=== PATIENT | male | born 1940 | race Caucasian/White ===

== ENCOUNTER → 2020-07-02 08:43 | Outpatient (BNVA) | payer MEDICARE, SELFPAY | PROVIDERS: PCP Internal Medicine; Referring Provider Internal Medicine; Visit Provider Internal Medicine Pulmonary Disease | DX: J44.9 Chronic obstructive pulmonary disease, unspecified (principal); R91.8 Other nonspecific abnormal finding of lung field; F17.200 Nicotine dependence, unspecified, uncomplicated; Z79.899 Other long term (current) drug therapy | CPT/HCPCS: 99212 ==

== ENCOUNTER 2020-07-09 06:18 | Day surgery (SDC) | payer MEDICARE, SELFPAY ==
[2020-07-03 11:59] VITALS: BMI 23.8
--- NOTE | 2020-07-08 09:56 | P.CONAN_ITS ---
Documented by User: Kat Caldwellney 07/08/20 09:58 HPI - Anesthesia Eval Consult details Narrative: 79yo M for [facility] Past Medical History Medical History CAD (coronary artery disease) Diabetes Family history of transitional cell carcinoma of bladder Hx of myocardial infarction Hyperlipidemia Hypertension Smoker Surgical History Surgical History History of left ankle joint replacement History of nasal surgery Hx of cholecystectomy Hx of colonoscopy Hx of cystoscopy Hx of heart artery stent Social History Social History Are you a primary home health care worker to a significant other at home: No Do you presently have visiting nurse or other home services: No Smoking Status: Current every day smoker Cigarettes Per Day: 4 Years Smoked: 40 Smoked in Last 30 Days: Yes Patient Interested in Nicotine Replacement: No Patient Given Instructions on How to Stop Smoking: Yes Date Education Initiated: 07/03/20 Use of substances other than those prescribed or required for medical reasons: No Have you been hit, kicked, punched, or otherwise hurt by someone within the past year? If so, by whom?: No Advance Directives: No Advance Directives Information Provided: No Advance Directives on File: No Recently lost weight without trying: No Meds Allergies Allergy/AdvReac Type Severity Reaction Status Date / Time No Known Allergies Allergy Verified 07/08/20 10:10 Home Medications Medication Instructions Recorded Confirmed Type albuterol sulfate 90 mcg/actuation 2 puff INHALATION Q4-6H PRN 07/02/20 07/03/20 History aerosol inhaler aspirin 81 mg tablet,delayed 81 mg PO DAILY 07/02/20 07/09/20 History release atorvastatin 20 mg tablet 20 mg PO DAILY 07/02/20 07/03/20 History fluticasone fur. 100 mcg-umeclid 1 inh INHALATION DAILY 07/02/20 07/03/20 History 62.5 mcg-vilant 25 mcg inhalat.powder glipizide 5 mg tablet, extended 5 mg PO DAILY 07/02/20 07/03/20 History release 24 hr actgyq-bblydfgc-zsijhls 1 cap PO BID 07/02/20 07/03/20 History 24,000-76,000-120,000 unit capsule,delayed rel lisinopril 2.5 mg tablet 2.5 mg PO DAILY 07/02/20 07/03/20 History metformin 500 mg tablet 500 mg PO BID 07/02/20 07/09/20 History Exam Exam Date and Time: July 08, 2020 0956 Height,Weight and Vital Signs: Height 5 ft 10 in Weight 75.296 kg Assessment and Plan Assessment Anesthesia Assessment: Chart Reviewed Documented by User: Luis Chisholm MD 07/09/20 07:28 [facility] Past Medical History Medical History CAD (coronary artery disease) Diabetes Family history of transitional cell carcinoma of bladder Hx of myocardial infarction Hyperlipidemia Hypertension Smoker Surgical History Surgical History History of left ankle joint replacement History of nasal surgery Hx of cholecystectomy Hx of colonoscopy Hx of cystoscopy Hx of heart artery stent Social History Social History Are you a primary home health care worker to a significant other at home: No Do you presently have visiting nurse or other home services: No Smoking Status: Current every day smoker Cigarettes Per Day: 4 Years Smoked: 40 Smoked in Last 30 Days: Yes Patient Interested in Nicotine Replacement: No Patient Given Instructions on How to Stop Smoking: Yes Date Education Initiated: 07/03/20 Use of substances other than those prescribed or required for medical reasons: No Have you been hit, kicked, punched, or otherwise hurt by someone within the past year? If so, by whom?: No Advance Directives: No Advance Directives Information Provided: No Advance Directives on File: No Recently lost weight without trying: No Meds Allergies Allergy/AdvReac Type Severity Reaction Status Date / Time No Known Allergies Allergy Verified 07/08/20 10:10 Home Medications Medication Instructions Recorded Confirmed Type albuterol sulfate 90 mcg/actuation 2 puff INHALATION Q4-6H PRN 07/02/20 07/03/20 History aerosol inhaler aspirin 81 mg tablet,delayed 81 mg PO DAILY 07/02/20 07/09/20 History release atorvastatin 20 mg tablet 20 mg PO DAILY 07/02/20 07/03/20 History fluticasone fur. 100 mcg-umeclid 1 inh INHALATION DAILY 07/02/20 07/03/20 History 62.5 mcg-vilant 25 mcg inhalat.powder glipizide 5 mg tablet, extended 5 mg PO DAILY 07/02/20 07/03/20 History release 24 hr nbekka-lcsiynii-urlklhi 1 cap PO BID 07/02/20 07/03/20 History 24,000-76,000-120,000 unit capsule,delayed rel lisinopril 2.5 mg tablet 2.5 mg PO DAILY 07/02/20 07/03/20 History metformin 500 mg tablet 500 mg PO BID 07/02/20 07/09/20 History Exam Airway Mallampati Class: III TM Dist: >3cm Neck ROM: Full Denture: Upper and Lower Heart: rrr Lungs: nl Other: ao Assessment and Plan Assessment Anesthesia Assessment: Anesthesia Plan Discussed Final Anesthetic Review NPO: Yes ASA Class: III Final Preanesthetic Review: No Changes in Pt Med Stat, Meds/Allgs Chart Reviewed, Consent Obtained/Reviewed and Anes Risks/Benef Reviewed Patient Risk: Intermediate Procedure Risk: Low Anesthetic Plan Anesthetic Plan: MAC: Disposition: Standard PACU
[2020-07-09 07:09] VITALS: BP 114/67; PULSE 65; RESP 18; TEMP 36.9; O2SAT 96
[2020-07-09 07:10] LABS: Glucose, Whole Blood 133 mg/dL (60-115)
[2020-07-09] MEDS: Lactated Ringers 1,000 ML 100 ML IVCONT (07:20)
[2020-07-09 08:50] VITALS: BP 118/54; PULSE 77; RESP 13; TEMP 36.3; O2SAT 94
--- NOTE | 2020-07-09 08:55 | P.BOP_ITS ---
Brief Operative Note Date of Service: 07/09/20 Pre-op diagnosis: Screening, Hx of polyps Post-op diagnosis: other (Colon polyps, Diverticulosis, Internal hemorrhoids) Procedure: Colonoscopy to cecum with multiple snare polypectomies, with plac ement of 2 Resolution clips on polypectomy site at 30cm Surgeon: Ryan Yarbrough Anesthesia: MAC Estimated blood loss (mL): 5.0 Pathology: other (A. Polyp at 40cm B. Transverse colon polyps C. Polyp at 60cm D. Polyp at 30cm) Condition: stable Disposition: PACU
[2020-07-09 09:05] VITALS: BP 117/57; PULSE 73; RESP 16; TEMP 36.3; O2SAT 97
--- NOTE | 2020-07-09 09:45 | OP_ITS ---
SURGEON: Ryan Yarbrough MD INDICATIONS: The patient presents for evaluation of personal history of tubular adenoma of the colon and colorectal cancer screening. Full consent has been obtained from him for this including risks of bleeding and perforation. PREOPERATIVE DIAGNOSIS: POSTOPERATIVE DIAGNOSIS: PROCEDURE PERFORMED: Colonoscopy to the cecum with snare polypectomy. ESTIMATED BLOOD LOSS: COMPLICATIONS: ANESTHESIA: Monitored anesthesia care. ASSISTANTS: SPECIMENS: PREOPERATIVE DIAGNOSES: Colorectal cancer screening and personal history of tubular adenoma of the colon. POSTOPERATIVE DIAGNOSES: Colorectal cancer screening and personal history of tubular adenoma of the colon, colon polyps, diverticulosis, and internal hemorrhoids. DESCRIPTION OF PROCEDURE: The patient was placed in the left lateral decubitus position. The digital rectal exam revealed no abnormalities. The Olympus video pediatric colonoscope was entered into the rectum and advanced to the cecum with the assistance of abdominal wall pressure. Once in the cecum, I did identify normal-appearing cecal pouch with appendiceal orifice and a normal-appearing ileocecal valve. The entire cecum and ileocecal valve were well visualized and appeared normal. The scope was then slowly withdrawn assessing all mucosal surfaces carefully. Preparation throughout the colon was, for the most part good, but did have a lot of liquid stool, which required copious irrigation and suction to improve the visualization. For the most part, visualization was good, but again there was still some residual liquid stool. In the transverse colon, were several polyps between 6 and 10 mm in diameter, which were all snared and recovered by suction. Other polyps were seen at 30 cm, 40 cm, and 60 cm, which were all between 6 and 10 mm in diameter. These were then all snared and recovered by suction. The polyp at 30 cm did have some persistent oozing and was cauterized with the tip of the snare with good hemostasis, but then I applied 2 clips to the polypectomy site at 30 cm. I did not visualize any other polyps, colitis, or angiodysplasia. There was a mild amount of sigmoid diverticulosis. In the rectum, scope was retroflexed visualizing internal hemorrhoids, but no other pathology. The rectal mucosa appeared normal. The scope was straightened and withdrawn from the patient. He tolerated the procedure well and was returned to the recovery area in stable condition. IMPRESSION: 1. Colon polyps, status post snare polypectomy. 2. Diverticulosis. 3. Internal hemorrhoids. PLAN: The results of the pathology will be checked. Given his history multiple polyps on previous colonoscopies, I would recommend a repeat colonoscopy in 3 years. At that point, he would be 82 years old and we would take his clinical condition into account. He was advised to resume his aspirin in 72 hours. He will otherwise see me in 1 year for followup in regard to his pancreatic insufficiency. This has been discussed with his . MD YADIRA Petersen/FLETCHER / [id number] MTDD
== END 2020-07-09 09:46 | disposition home or self-care (01) ==
PROVIDERS: PCP Internal Medicine; Visit Provider Internal Medicine
PROC: 0DJD8ZZ Inspection of Lower Intestinal Tract, Via Natural or Artificial Opening Endoscopic (ICD-10-PCS; CPT 45378; principal; 2020-07-09 07:30)
DX: Z12.11 Encounter for screening for malignant neoplasm of colon (principal); D12.3 Benign neoplasm of transverse colon; D12.6 Benign neoplasm of colon, unspecified; K57.30 Diverticulosis of large intestine without perforation or abscess without bleeding; K64.8 Other hemorrhoids; Z86.010 Personal history of colon polyps; E11.9 Type 2 diabetes mellitus without complications; K86.1 Other chronic pancreatitis; F17.210 Nicotine dependence, cigarettes, uncomplicated; Z79.82 Long term (current) use of aspirin; Z79.84 Long term (current) use of oral hypoglycemic drugs; I25.2 Old myocardial infarction
CPT/HCPCS: 45385; 82947; 88305; J2370

== ENCOUNTER 2020-08-11 07:18 | Outpatient (REF) | payer MEDICARE, SELFPAY ==
--- NOTE | 2020-08-11 07:21 | CT_ITS ---
EXAMINATION: CT CHEST SCREENING CLINICAL INFORMATION: History of tobacco use. COMPARISON: None. TECHNIQUE: Multidetector volumetric CT imaging of the chest is performed without contrast using low dose technique. Additional 2D coronal and sagittal reformatted images and axial 3D maximum intensity projection (MIP) images are generated on the CT workstation. This CT examination was performed using dose optimization techniques as appropriate, variously including the following: *Automated exposure control *Adjustment of mA and/or kV according to patient size (this includes techniques or standardized protocols for targeted exams where dose is matched to indication/reason for exam; i.e. extremities or head) *Use of iterative reconstruction technique DLP: 48 mGy-cm. FINDINGS: LUNGS: Mild emphysematous changes of both lungs are seen. There is a noncalcified 2 mm nodule left lower lobe axial image 190/6 and a 2 mm nodule left upper lobe image 198/6. MEDIASTINUM: The heart size and the great vessels are normal caliber. There is atherosclerotic calcification of the thoracic arch. No abnormal-sized mediastinal lymph nodes or mass seen. There are coronary artery calcifications present. No pericardial effusion seen. PLEURA: There is no pleural effusion. No pleural mass or thickening. AXILLA: No lymphadenopathy. UPPER ABDOMEN: Visualized liver, spleen, pancreas and bilateral adrenal glands are unremarkable. OSSEOUS STRUCTURES: There is moderate ventral spondylosis mid and lower dorsal spine. No lytic process. CT/CT lung screening IMPRESSION: Emphysema with stable 2 mm nodules in left upper lobe and left lower lobe. No abnormal mediastinal adenopathy. There is coronary artery and thoracic arch atherosclerotic calcification. ASSESSMENT: Lung-RADS category 2: Benign. RECOMMENDATION: Low-dose annual CT chest screening.
== END 2020-08-11 07:19 | disposition home or self-care (01) ==
LOC: HO.CT 07:18
PROVIDERS: PCP Internal Medicine; Visit Provider Physician Assistant Medical
DX: Z12.2 Encounter for screening for malignant neoplasm of respiratory organs (principal); F17.210 Nicotine dependence, cigarettes, uncomplicated
CPT/HCPCS: 71250

== ENCOUNTER → 2020-10-28 09:00 | Outpatient (BNVA) | payer MEDICARE, SELFPAY | PROVIDERS: PCP Internal Medicine; Visit Provider Internal Medicine Pulmonary Disease | DX: J44.9 Chronic obstructive pulmonary disease, unspecified (principal); R91.8 Other nonspecific abnormal finding of lung field | CPT/HCPCS: 99212 ==

== ENCOUNTER → 2021-05-05 08:57 | Outpatient (BNVA) | payer MEDICARE, SELFPAY | PROVIDERS: PCP Internal Medicine; Visit Provider Internal Medicine Pulmonary Disease | DX: J44.9 Chronic obstructive pulmonary disease, unspecified (principal) | CPT/HCPCS: 99212 ==

== ENCOUNTER 2021-11-09 11:00 | Outpatient (REF) | payer MEDICARE, SELFPAY ==
--- NOTE | ~2021-11-09 | CT_ITS ---
EXAMINATION: CT CHEST SCREENING CLINICAL INFORMATION: Smoking history. 40 pack year history. Current smoker. COMPARISON: Previous chest CT most recent July 2020 TECHNIQUE: Multidetector volumetric CT imaging of the chest is performed without contrast using low dose technique. Additional 2D coronal and sagittal reformatted images and axial 3D maximum intensity projection (MIP) images are generated on the CT workstation. This CT examination was performed using dose optimization techniques as appropriate, variously including the following: *Automated exposure control *Adjustment of mA and/or kV according to patient size (this includes techniques or standardized protocols for targeted exams where dose is matched to indication/reason for exam; i.e. extremities or head) *Use of iterative reconstruction technique DLP: 41 mGy-cm FINDINGS: LUNGS: There is evidence of emphysema. The small bilateral pulmonary nodules are stable. Images pulmonary nodules measure 4 mm in the right lower lobe axial image 280 series 5 and 4 mm in the lingula axial image 334 series 5. No new pulmonary nodule is seen. There is no endobronchial or endotracheal lesion. MEDIASTINUM: There is coronary artery and aortic valve calcification. The mediastinum is otherwise normal. PLEURA: There is no pleural effusion. No pleural mass or thickening. AXILLA: No lymphadenopathy. UPPER ABDOMEN: Unremarkable OSSEOUS STRUCTURES: Degenerative changes of the spine. CT/CT lung screening IMPRESSION: Emphysema. Stable small pulmonary nodules. Coronary artery and aortic valve calcification. ASSESSMENT: Lung-RADS category 2: Benign RECOMMENDATION: Annual low-dose chest CT follow-up recommended.
== END 2021-11-09 11:01 | disposition home or self-care (01) ==
LOC: HO.CT 11:00
PROVIDERS: PCP Internal Medicine; Visit Provider Physician Assistant Medical
DX: Z12.2 Encounter for screening for malignant neoplasm of respiratory organs (principal); F17.210 Nicotine dependence, cigarettes, uncomplicated
CPT/HCPCS: 71271

== ENCOUNTER → 2021-11-10 08:47 | Outpatient (BNVA) | payer MEDICARE, SELFPAY | PROVIDERS: PCP Internal Medicine; Visit Provider Internal Medicine Pulmonary Disease | DX: J44.9 Chronic obstructive pulmonary disease, unspecified (principal); R91.8 Other nonspecific abnormal finding of lung field | CPT/HCPCS: 99212 ==

== ENCOUNTER 2022-04-12 08:40 | Outpatient (REF) | payer MEDICARE, SELFPAY | END 2022-04-12 08:41 | disposition home or self-care (01) | LOC: HO.RESP 08:40 | PROVIDERS: PCP Internal Medicine; Visit Provider Internal Medicine Pulmonary Disease | DX: J44.9 Chronic obstructive pulmonary disease, unspecified (principal) | CPT/HCPCS: 94060 ==

== ENCOUNTER → 2022-05-18 08:46 | Outpatient (BNVA) | payer MEDICARE, SELFPAY | PROVIDERS: PCP Internal Medicine; Visit Provider Internal Medicine Pulmonary Disease | DX: J44.9 Chronic obstructive pulmonary disease, unspecified (principal); R91.8 Other nonspecific abnormal finding of lung field; Z79.899 Other long term (current) drug therapy | CPT/HCPCS: 99212 ==

== ENCOUNTER → 2022-12-22 09:10 | Outpatient (BNVA) | payer MEDICARE, SELFPAY | PROVIDERS: PCP Internal Medicine; Visit Provider Internal Medicine Pulmonary Disease | DX: J44.9 Chronic obstructive pulmonary disease, unspecified (principal); R91.8 Other nonspecific abnormal finding of lung field | CPT/HCPCS: 99212 ==

== ENCOUNTER 2022-12-24 07:48 | Outpatient (REF) | payer MEDICARE, SELFPAY ==
--- NOTE | ~2022-12-24 | CT_ITS ---
EXAMINATION: CT CHEST SCREENING CLINICAL INFORMATION: Nicotine dependence, cigarettes. COMPARISON: CT chest 11/09/2021, 08/11/2020. TECHNIQUE: Multidetector volumetric CT imaging of the chest is performed without contrast using low dose technique. Additional 2D coronal and sagittal reformatted images and axial 3D maximum intensity projection (MIP) images are generated on the CT workstation. This CT examination was performed using dose optimization techniques as appropriate, variously including the following: *Automated exposure control *Adjustment of mA and/or kV according to patient size (this includes techniques or standardized protocols for targeted exams where dose is matched to indication/reason for exam; i.e. extremities or head) *Use of iterative reconstruction technique DLP: 52 mGy-cm FINDINGS: LUNGS: The lungs are hyperinflated. There is a 3 mm nodule right lower lobe axial image 299/6, 2 mm nodule left lower lobe image 302/6, stable, 3 mm nodule in the lingula, stable. No new nodule seen. MEDIASTINUM: Thyroid lobes are stable and normal. The central trachea and the bronchi are widely patent. Heart size and the great vessels are normal caliber. No pericardial effusion seen. No abnormal-sized mediastinal or hilar lymph nodes. CORONARY ARTERY CALCIFICATION: Moderate coronary artery calcifications are present. PLEURA: There is no pleural effusion. No pleural mass or thickening. AXILLA: No lymphadenopathy. UPPER ABDOMEN: Visualized liver, spleen and adrenal glands unremarkable. There is diffuse calcification seen through atrophied pancreas likely chronic pancreatitis. OSSEOUS STRUCTURES: No aggressive lytic or sclerotic process seen. There is moderate ventral spondylosis mid and lower dorsal spine. CT/CT lung screening IMPRESSION: Stable bilateral pulmonary nodules. No new nodules seen. ASSESSMENT: Lung-RADS category 2: Benign RECOMMENDATION: Annual low-dose CT chest.
== END 2022-12-24 07:49 | disposition home or self-care (01) ==
LOC: HO.CT 07:48
PROVIDERS: Visit Provider Physician Assistant Medical
DX: F17.210 Nicotine dependence, cigarettes, uncomplicated (principal)
CPT/HCPCS: 71271

== ENCOUNTER 2023-01-24 09:14 | Emergency (ER) | payer MEDICARE, SELFPAY ==
--- NOTE | ~2023-01-24 | XR_ITS ---
EXAMINATION: XR CHEST CLINICAL INFORMATION: Cough, shortness of breath COMPARISON: Chest 08/09/2012 TECHNIQUE: 2 views of the chest were obtained. FINDINGS: The lungs are well expanded. No focal consolidation, interstitial pulmonary edema or pneumothorax. No pleural effusion. No significant abnormality is noted involving the heart, mediastinum or soft tissues. No acute osseous lesion XR/XR chest 2V IMPRESSION: No acute cardiopulmonary disease.
[2023-01-24 09:16] VITALS: BP 164/85; PULSE 106; RESP 19; TEMP 36.6; O2SAT 96; BMI 22.1
--- NOTE | 2023-01-24 09:31 | MHC.EDTECH ---
Covid and flu swab collected and sent to lab
[2023-01-24 09:55] LABS: IDNOW Serial# BCCEAD1C; Influenza A Negative (Negative); Influenza B2 Negative (Negative)
[2023-01-24 09:56] LABS: COVID-19 Test Negative (Negative); IDNOW Serial# 08D9AD1C
--- NOTE | 2023-01-24 10:30 | ED_ITS ---
HPI - General Adult General Chief complaint: Upper Respiratory Symptoms Stated complaint: Diff breathing Time Seen by Provider: 01/24/23 10:29 Source: patient Mode of arrival: ambulatory Limitations: no limitations History of Present Illness HPI narrative: 82-year-old male history of hypertension, hyperlipidemia, COPD, diabetes presenting to the emergency department for complaints of fatigue, malaise, myalgias, sinus congestion, productive cough, discomfort in throat and bilateral ears for the past few days worsening. Denies any recent sick contacts. Patient tells me he feels congested in on well. Patient denies shortness of breath, chest pain, nausea, vomiting, abdominal pain, diarrhea, headache, vision changes, dizziness and weakness. Related Data Home Medications Medication Instructions Recorded Confirmed aspirin 81 mg tablet,delayed 81 mg PO DAILY 07/02/20 07/09/20 release (Adult Low Dose Aspirin) atorvastatin 20 mg tablet 20 mg PO DAILY 07/02/20 07/03/20 glipizide 5 mg tablet, extended 5 mg PO DAILY 07/02/20 07/03/20 release 24 hr xsktht-wohzzkcq-uibsjjb 1 cap PO BID 07/02/20 07/03/20 24,000-76,000-120,000 unit capsule,delayed rel lisinopril 2.5 mg tablet 2.5 mg PO DAILY 07/02/20 07/03/20 metformin 500 mg tablet 500 mg PO BID 07/02/20 07/09/20 Previous Rx's Medication Instructions Recorded Ventolin HFA 90 mcg/actuation 2 puff inhalation Q2H PRN 04/05/22 aerosol inhaler (albuterol sulfate) shortness of breath or wheezing #18 grams Trelegy Ellipta 100 mcg-62.5 1 ea PO DAILY #60 ea 01/05/23 mcg-25 mcg powder for inhalation (ffeviwujdaw-yalcdyhnf-adrhnsni) albuterol sulfate 90 mcg/actuation 2 inh inhalation Q4-6H PRN 01/24/23 breath activated powder inhaler shortness of breath or wheezing #1 ea doxycycline hyclate 100 mg capsule 100 mg PO BID 10 days #20 caps 01/24/23 prednisone 20 mg tablet 20 mg PO DAILY 5 days #5 tabs 01/24/23 Allergies Allergy/AdvReac Type Severity Reaction Status Date / Time No Known Allergies Allergy Verified 01/24/23 09:16 Review of Systems Review of Systems: Constitutional : No Weight loss, No Fever, No Chills, No Fatigue, No Malaise ENT/Mouth : No sore throat, No Rhinorrhea, + ear pain Eyes: No Eye Pain, No Swelling, No Redness Cardiovascular : No Chest Pain, + SOB, No Dyspnea on Exertion, No Orthopnea, No Edema, No Palpitations Respiratory : + Cough, No Sputum, No Wheezing Gastrointestinal : No Nausea, No Vomiting, No Diarrhea, No Constipation, No abdominal Pain, No Hematochezia, No Melena Genitourinary : No Dysuria, No Urinary Frequency, No Hematuria, Musculoskeletal : No joint pain, No Myalgias, No Joint Swelling Skin : No Skin Lesions, No rash Neuro : No Weakness, No Numbness, No Dizziness, No Headache Psych : No Anxiety/Panic, No Depression All other systems reviewed and are negative Yes all other systems are reviewed and are negative [facility] Past Medical History Attestation statement: The following information was validated with the patient. Source: old records reviewed and nursing notes reviewed Medical History CAD (coronary artery disease) Diabetes Family history of transitional cell carcinoma of bladder Hx of myocardial infarction Hyperlipidemia Hypertension Smoker Surgical History History of left ankle joint replacement History of nasal surgery Hx of cholecystectomy Hx of colonoscopy Hx of cystoscopy Hx of heart artery stent Social History Social History Are you a primary family day care provider to a significant other at home: No Do you presently have visiting nurse or other home services: No Cigarettes Per Day: 4 Years Smoked: 40 Physical Exam ED Vital Signs: Vital Signs - 24 hr 01/24/23 09:16 Temperature 98 F Pulse Rate 106 H Respiratory Rate 19 Blood Pressure 164/85 H Pulse Oximetry 96 Oxygen Delivery Method Room Air BMI result Body Mass Index 22.1 tachycardia and slight hypertension Appearance: Alert.? Oriented X3.? No acute distress.? Head: Normocephalic, atraumatic, no step-offs or deformities. Discomfort with palpation of facial sinuses. Eyes: Pupils equal, round and reactive to light.? ENT: Pharynx normal.? Uvula midline. No exudates. Speaking in full sentences controlling secretions well. No signs of abscess. Neck: Normal inspection.? Neck supple.? CVS: Normal heart rate and rhythm.? Pulses normal.? Respiratory: No respiratory distress.? Breath sounds Slightly diminished bilaterally with faint wheezing throughout.? Abdomen: Soft and nontender.? Skin: Skin warm and dry.? Normal skin color.? Normal skin turgor.? Extremities: No lower extremity edema.? No calf ttp. 5/5 strength to bilateral upper and lower extremities Neuro: Oriented X 3.? No motor deficit.? No sensory deficit. CN 2-12 intact Course Reevaluation(s) Reevaluation #1: x-ray no acute cardiopulmonary disease. COVID, influenza negative. Likely bronchitis. Will treat with doxycycline, prednisone, albuterol. Educated patient on diagnosis and treatment plan, answered all question, patient verbalizes understanding. At this time patient will be discharged home, advised to return with new or worsening symptoms. Educated on worrisome signs and symptoms and when to return. At this time I feel comfortable discharge home. Time: 10:33 Medical Decision Making Medical Decision Making [facility] Narrative: 1031 82-year-old male presents with fatigue, malaise, congestion, sore throat, cough, shortness of breath past few days worsening. Physical exam with diminished breath sounds bilaterally and faint wheezing throughout. likely bronchitis versus viral illness Versus sinusitis. Unlikely pneumonia, PE, ACS, CHF. no signs of peritonsillar abscess, epiglottitis. Patient's O2 saturation is 96% even after ambulation. Plan viral testing, x-ray. Differential Diagnosis Differential Diagnoses: The differential diagnosis associated with the presentation includes likely bronchitis versus viral illness versus sinusitis. Unlikely pneumonia, PE, ACS, CHF. no signs of peritonsillar abscess, epiglottitis. Admission/Observation Consideration of admission/observation: Escalation of care including admission/observation considered Unlikely Lab Data [facility] Lab Attestation statement: I reviewed the patient's lab results. Labs: Lab Results 01/24/23 01/24/23 Range/Units 09:30 09:30 COVID-19 (KALYANI) Negative (Negative) COVID-19 Clin Com See Note Influenza Type A (YESSICA) Negative (Negative) Influenza Type B (YESSICA) Negative (Negative) Influenza A & B Note See Note Independent Interpretation I performed an independent interpretation of an: Plain X-Ray ( XR/XR chest 2V IMPRESSION: No acute cardiopulmonary disease.) Radiology Impression Discussion of test interpretation with radiology: I have reviewed the radiologist's reading. Core Measures AMI core measures followed: Yes Measure exclusions: not indicated Critical Care Time Critical Care Time Critical Care Time: No Discharge Plan Discharge Clinical Impression: Upper respiratory infection Patient Disposition: Home, Self-Care Instructions: Upper Respiratory Infection (ED), Viral Syndrome (ED), Wheezing (ED) Additional Instructions: Take your medications as prescribed. If you were prescribed antibiotics t elysia, it is important that you take your medication to their entirety, do not skip any doses, do not finish them early. Follow-up with your primary care provider this week. Return to the emergency department with new or worsening symptoms. Such as fevers, chills, chest pain, shortness of breath, nausea, vomiting, dizziness, headache, vision changes, lethargy In case of emergency call 911 Prescriptions: New doxycycline hyclate 100 mg capsule 100 mg PO BID 10 Days Qty: 20 0RF prednisone 20 mg tablet 20 mg PO DAILY 5 Days Qty: 5 0RF albuterol sulfate 90 mcg/actuation aerosol powdr breath activated 2 inh inhalation Q4-6H PRN (Reason: shortness of breath or wheezing) Qty: 1 0RF No Action albuterol sulfate [Ventolin HFA] 90 mcg/actuation HFA aerosol inhaler 2 puff inhalation Q2H PRN (Reason: shortness of breath or wheezing) Qty: 18 6RF Trelegy Ellipta 100-62.5-25 mcg blister with device 1 ea PO DAILY Qty: 60 6RF metformin 500 mg tablet 500 mg PO BID aspirin [Adult Low Dose Aspirin] 81 mg tablet,delayed release (DR/EC) 81 mg PO DAILY lisinopril 2.5 mg tablet 2.5 mg PO DAILY glipizide 5 mg tablet extended release 24hr 5 mg PO DAILY atorvastatin 20 mg tablet 20 mg PO DAILY Creon 24,000-76,000 -120,000 unit capsule,delayed release(DR/EC) 1 cap PO BID Referrals: Shilo Garcia MD [Primary Care Provider] - 2 days
== END 2023-01-24 11:02 | disposition home or self-care (01) ==
LOC: HO.ED 10:44
PROVIDERS: Emergency Provider Emergency Medicine; PCP Internal Medicine
DX: J06.9 Acute upper respiratory infection, unspecified (principal); R00.0 Tachycardia, unspecified; R06.02 Shortness of breath; I10 Essential (primary) hypertension; Z20.822 Contact with and (suspected) exposure to COVID-19
CPT/HCPCS: 71046; 87502; 87635; 99283; 99284

== ENCOUNTER 2023-06-21 08:51 | Outpatient (AMB) | payer MEDICARE, SELFPAY ==
[2023-06-21 08:52] VITALS: BP 138/64; PULSE 71; O2SAT 96; BMI 21.7
--- NOTE | 2023-06-21 08:52 | A.OFFVIS_ITS ---
Intake Vital Signs 06/21/23 08:52 Height 5 ft 10 in Weight 151 lb 0.266 oz BMI 21.7 BP 138/64 Blood Pressure Location Rt brachial Position Sitting Pulse 71 Pulse Source Doppler Pulse Oximetry (%) 96 Oxygen Delivery Method Room Air Intake Visit Reasons: copd Allergies No Known Allergies Allergy (Verified 06/21/23 08:54) HPI copd HPI Details 82-year-old gentleman, active 50+ pack-y ear smoker, followed for moderate COPD and pulmonary nodules.? Continues to use Trelegy with good control of his underlying dyspnea symptoms, however it gets very expensive for him to use it. He denies any recent COPD exacerbations.? Rarely uses his albuterol MDI.? His follow-up lung cancer screening scan was benign. [facility] Medical History (Updated 06/17/23 @ 12:35 by Charla Simms PA-C) Tubular adenoma of colon (~2011) CAD (coronary artery disease) Hx of myocardial infarction (~1991) Hypertension Hyperlipidemia Diabetes Moderate COPD (chronic obstructive pulmonary disease) Smoker History of bladder cancer (~1996) Surgical History (Updated 06/17/23 @ 12:37 by Charla Simms PA-C) History of heart artery stent History of cystoscopy History of colonoscopy History of cholecystectomy History of left ankle joint replacement History of nasal surgery Social History (Updated 06/21/23 @ 08:55 by CARLITOS Jama) Are you a primary vp care management to a significant other at home: No Do you presently have visiting nurse or other home services: No Alcohol intake: never Patient Tobacco Use Status: Current everyday Tobacco user Tobacco use type: Cigarette Cigarettes Per Day: 4 Years Smoked: 40 Review of Systems Const Denies daytime sleepiness, Denies excessive sweating, Denies fatigue, Denies fever(s), Denies lethargy, Denies malaise, Denies night sweats, Denies snoring and Denies weight loss Eyes Denies blurry vision and Denies itchy eyes ENT Denies nasal congestion, Denies post nasal drip, Denies sinus pain, Denies sinus pressure and Denies other ( Thrush) Card Denies chest pain, Denies pedal edema, Denies dyspnea, Denies orthopnea and Denies paroxysmal nocturnal dyspnea Resp Denies cough, Denies hemoptysis, Denies excessive phlegm production, Denies dyspnea, Denies snoring and Denies wheezing GI Denies abdominal pain and Denies heartburn Musc Denies myalgias, Denies arthralgias and Denies joint swelling Skin/Breast Denies rash Neuro Denies memory loss and Denies seizure-like activity Psych Denies abnormal sleep pattern, Denies anxiety and Denies memory loss Endo Denies excessive sweating, Denies fatigue and Denies heat intolerance Jerry/Lymph Denies easy bruising Aller/Immun Denies itchy eyes, Denies seasonal rhinorrhea and Denies wheezing Physical Exam Vital Signs: Last Vital Signs Pulse 71 06/21/23 08:52 BP 138/64 06/21/23 08:52 Pulse Ox 96 06/21/23 08:52 Oxygen Delivery Method Room Air 06/21/23 08:52 BMI result Body Mass Index 21.7 Const General: no acute distress and alert Nutritional Appearance: not obese Orientation/consciousness: Other orientation findings ( oriented) HEENT Head: Yes atraumatic Eyes General: appearance normal, both eyes and all related structures Sclerae: sclerae normal EOM: EOMs intact bilaterally Neck Neck: Yes supple Lymphatic: no lymphadenopathy noted Resp Effort & Inspection: normal respiratory effort and no use of accessory muscles Auscultation: clear to auscultation bilaterally Cardio Rate: regular rate Rhythm: regular rhythm Heart sounds: no gallops, no murmurs and no rubs Skin General skin exam: other ( warm) Extrem General: No clubbing, No cyanosis and No edema Assessment & Plan Assessment & Plan (1) Moderate COPD (chronic obstructive pulmonary disease): Code(s): J44.9 - Chronic obstructive pulmonary disease, unspecified Plan: Well controlled on Trelegy and albuterol MDI. Patient would like to try generic equivalent to Trelegy. Continue albuterol MDI. (2) Pulmonary nodules: Code(s): R91.8 - Other nonspecific abnormal finding of lung field Plan: Results of lung cancer screening scan from December of 2022 reviewed, benign. Continue with yearly screening. Coding Level of Care Code Est Pt Level 4 (87303) Diagnoses Moderate COPD (chronic obstructive pulmonary disease) J44.9 Pulmonary nodules R91.8
== END 2023-06-21 09:16 | disposition home or self-care (01) ==
PROVIDERS: PCP Internal Medicine; Visit Provider Internal Medicine Pulmonary Disease
DX: J44.9 Chronic obstructive pulmonary disease, unspecified (principal); R91.8 Other nonspecific abnormal finding of lung field
CPT/HCPCS: 99214

== ENCOUNTER → 2023-06-21 08:51 | Outpatient (BNVA) | payer MEDICARE, SELFPAY | PROVIDERS: Visit Provider Internal Medicine Pulmonary Disease | DX: J44.9 Chronic obstructive pulmonary disease, unspecified (principal); R91.8 Other nonspecific abnormal finding of lung field | CPT/HCPCS: 99212 ==

== ENCOUNTER 2023-08-11 08:48 | Outpatient (AMB) | payer MEDICARE, SELFPAY ==
--- NOTE | 2023-08-11 10:03 | MHC.OFFWIV ---
Intake Vital Signs 08/11/23 10:04 Height 5 ft 10 in Weight 152 lb BMI 21.8 BP 132/82 Blood Pressure Location Rt brachial Position Sitting Pulse 102 H Pulse Source Pulse Oximeter Temp 98.0 F Temp Source Oral Pulse Oximetry (%) 94 Intake Visit Reasons: cell liner/eye irritation([phone]) Intake Note: pt is here today for eye irritation, puffy eyes, blurred visions, wears glasses, started constantin night Patient Tobacco Use Status: Current everyday Tobacco user (3 cigarettes a day ) Allergies No Known Allergies Allergy (Verified 08/11/23 10:05) Do you need a note to return to daycare/school/sports/work: No HPI HPI Comments History of Present Illness Details He presents with eye redness/discharge Daughter with strep and he had a cold Constantin night it started in both eyes He denies contact use, + glasses He said blurred vision due to discharge He has not tried anything for it Eyes are crusted shut in am +scrtachy but no trauma No NESS or dizziness Daughter also now has + conjunctivitis PFSH Medical History (Updated 08/11/23 @ 10:35 by Ondina Tang PA-C) Tubular adenoma of colon (~2011) CAD (coronary artery disease) Hx of myocardial infarction (~1991) Hypertension Hyperlipidemia Diabetes Moderate COPD (chronic obstructive pulmonary disease) Smoker History of bladder cancer (~1996) Surgical History (Updated 06/17/23 @ 12:37 by Charla Simms PA-C) History of heart artery stent History of cystoscopy History of colonoscopy History of cholecystectomy History of left ankle joint replacement History of nasal surgery Social History (Updated 06/21/23 @ 08:55 by Kimberly Wilhelm Ruben) Are you a primary intensive care ambulance paramedic to a significant other at home: No Do you presently have visiting nurse or other home services: No Alcohol intake: never Patient Tobacco Use Status: Current everyday Tobacco user (3 cigarettes a day ) Tobacco use type: Cigarette Cigarettes Per Day: 4 Years Smoked: 40 Review of Systems Const Denies body aches, Denies chills and Denies fever(s) Eyes Reports blurry vision (due to discharge), Denies diplopia, Reports eye discharge and Denies spots in vision ENT Denies otalgia, Reports nasal discharge and Denies sore throat Card Denies chest pain and Denies dyspnea Resp Denies dyspnea Physical Exam Vital Signs: Last Vital Signs Temp 98.0 F 08/11/23 10:04 Pulse 102 H 08/11/23 10:04 BP 132/82 08/11/23 10:04 Pulse Ox 94 08/11/23 10:04 BMI result Body Mass Index 21.8 General: Non-toxic, NAD. Speaking full sentences. Skin: Warm dry throughout Eye: EOMI, PERRL. + conjunctival erythema bilaterally with yellow discharge on bilateral lower eyelids. No FB noted under lids. Respiratory: No cough on exam. No tachypnea MSK: Full ROM extremities. Neurology: A/O. No aphasia or facial droop. Gait without abnormality Psych: Good mood and affect Assessment & Plan Assessment & Plan (1) Bacterial conjunctivitis: Code(s): H10.9 - Unspecified conjunctivitis Plan: Patient seen and evaluated. + bacterial conjuntivitis bilaterally Daughter with similar symptoms Avoi rubbing +clean pillow case Clean eyes with warm towel Ofloxacin drops F/U with PCP Patient gave verbal understanding and had no additional questions or concerns at time of discharge All questions answered Medications: New ofloxacin 0.3% 1 drp ophthalmic (eye) QID 7 days 10 mL 0RF H10.9 - Unspecified conjunctivitis Coding Level of Care Code New Pt Level 3 (98158) Diagnoses Bacterial conjunctivitis H10.9
[2023-08-11 10:04] VITALS: BP 132/82; PULSE 102; TEMP 36.7; O2SAT 94; BMI 21.8
== END 2023-08-11 10:54 | disposition home or self-care (01) ==
PROVIDERS: PCP Internal Medicine; Visit Provider Physician Assistant
DX: H10.9 Unspecified conjunctivitis (principal)
CPT/HCPCS: 99203

== ENCOUNTER 2023-08-13 07:01 | Emergency (ER) | payer MEDICARE, SELFPAY ==
--- NOTE | ~2023-08-13 | XR_ITS ---
EXAMINATION: XR CHEST CLINICAL INFORMATION: Cough. COMPARISON: Most recent chest radiograph dated 01/24/2023. TECHNIQUE: 2 views of the chest were obtained. FINDINGS: The lungs are clear. The cardiomediastinal silhouette is normal in size. There is no pleural effusion or pneumothorax. No acute osseous abnormality. XR/XR chest 2V IMPRESSION: No acute cardiopulmonary findings.
[2023-08-13 07:06] VITALS: BP 161/64; PULSE 114; RESP 22; TEMP 36.6; O2SAT 94; BMI 21.3
[2023-08-13 07:53] LABS: IDNOW Serial# 9DB6401D; Influenza A Negative (Negative); Influenza B2 Negative (Negative)
[2023-08-13 07:55] LABS: COVID-19 Test Negative (Negative); IDNOW Serial# 58CA691E
--- NOTE | 2023-08-13 09:29 | ED_ITS ---
HPI - Ear Problem General Chief complaint: Ear Problems Stated complaint: pain in L ear Time Seen by Provider: 08/13/23 09:03 Source: patient Mode of arrival: ambulatory Limitations: no limitations History of Present Illness HPI Narrative: Patient is an 82-year-old male past medical history of type 2 diabetes, COPD, CAD, mi, hypertension, hyperlipidemia presenting to emergency department for evaluation of a cough and left ear pain. Reports progressive worsening of his baseline cough about 8 days ago with a change in his sputum frequency and color. His symptoms did begin to improve for a couple of days but over the past 2 days has worsened again. He is now experiencing pain to the left ear and what he describes as a fluid moving sensation. He denies headache, dizziness, lightheadedness, neck pain, sore throat, chest pain, shortness of breath, difficulty breathing, nausea vomiting, abdominal pain via Related Data Home Medications Medication Instructions Recorded Confirmed aspirin 81 mg tablet,delayed 81 mg PO DAILY 07/02/20 07/09/20 release (Adult Low Dose Aspirin) atorvastatin 20 mg tablet 20 mg PO DAILY 07/02/20 07/03/20 glipizide 5 mg tablet, extended 5 mg PO DAILY 07/02/20 07/03/20 release 24 hr [id number] 1 cap PO BID 07/02/20 07/03/20 24,000-76,000-120,000 unit capsule,delayed rel lisinopril 2.5 mg tablet 2.5 mg PO DAILY 07/02/20 07/03/20 metformin 500 mg tablet 500 mg PO BID 07/02/20 07/09/20 Previous Rx's Medication Instructions Recorded Ventolin HFA 90 mcg/actuation 2 puff inhalation Q2H PRN 04/05/22 aerosol inhaler (albuterol sulfate) shortness of breath or wheezing #18 grams albuterol sulfate 90 mcg/actuation 2 inh inhalation Q4-6H PRN 01/24/23 breath activated powder inhaler shortness of breath or wheezing #1 ea fluticasone furoate 200 1 inh inhalation DAILY 30 days #1 06/22/23 mcg-vilanterol 25 mcg/dose ea inhalation powder tiotropium bromide 18 mcg capsule 1 cap inhalation DAILY 30 days #30 06/22/23 with inhalation device inhalations ofloxacin 0.3 % eye drops 1 drp ophthalmic (eye) QID 7 days 08/11/23 #10 mL azithromycin 250 mg tablet See Rx Instructions PO .COMPLEX #6 08/13/23 tabs Allergies Allergy/AdvReac Type Severity Reaction Status Date / Time No Known Allergies Allergy Verified 08/13/23 07:08 Review of Systems Review of Systems: Yes all other systems are reviewed and are negative FORMERLY [facility], [facility] Past Medical History Attestation statement: The following information was validated with the patient. Source: old records reviewed Medical History Tubular adenoma of colon (~2011) CAD (coronary artery disease) Hx of myocardial infarction (~1991) Hypertension Hyperlipidemia Diabetes Moderate COPD (chronic obstructive pulmonary disease) Smoker History of bladder cancer (~1996) Surgical History History of heart artery stent History of cystoscopy History of colonoscopy History of cholecystectomy History of left ankle joint replacement History of nasal surgery Social History Social History (Updated 06/21/23 @ 08:55 by Kimberly Wilhelm Ruben) Are you a primary healthcare technician to a significant other at home: No Do you presently have visiting nurse or other home services: No Alcohol intake: never Patient Tobacco Use Status: Current everyday Tobacco user (3 cigarettes a day ) Tobacco use type: Cigarette Cigarettes Per Day: 4 Years Smoked: 40 Advance Directives: No Advance Directives Information Provided: No Physical Exam Vital Signs: Vital Signs: Last Vital Signs Temp 97.8 F 08/13/23 07:06 Pulse 114 H 08/13/23 07:06 Resp 22 H 08/13/23 07:06 BP 161/64 H 08/13/23 07:06 Pulse Ox 94 08/13/23 07:06 O2 Del Method Room Air 08/13/23 07:06 BMI result Body Mass Index 21.3 Appearance: Alert.?Oriented to person, place and time. No acute distress.?Normal affect. Eyes: Pupils equal, round and reactive to light.? ENT: Pharynx normal.?? TM normal bilaterally. No mastoid tenderness. No postauricular tenderness. Neck: Normal inspection.? Neck supple.?? No cervical lymphadenopathy CVS: Heart sounds normal. Normal heart rate and rhythm.? Pulses normal.?? Respiratory: No respiratory distress.? Lung sounds clear to auscultation bilaterally?? Abdomen: Soft and non-tender. Normoactive bowel sounds. Skin: Skin warm and dry.? Normal skin color.? ? Extremities: No lower extremity edema.? No calf ttp? Neuro: Moves all extremities spontaneously. Sensation intact bilaterally. No focal neuro deficits. Ambulates with normal steady gait. Medical Decision Making Medical Decision Making [facility] Narrative: Patient is an 82-year-old male past medical history of type 2 diabetes, COPD, CAD, mi, hypertension, hyperlipidemia presenting to emergency department for evaluation of a cough and left ear pain. no evidence of TM rupture, malignant otitis externa, otitis externa, AOM. COVID-19 and influenza testing were negative. chest x-ray is without acute cardiopulmonary findings. At this time history and physical exam not consistent with ACS/PE/pneumonia. given his history of COPD, change in his sputum production will treat for COPD exacerbation with course of azithromycin. Well-appearing, nontoxic, afebrile, no tachypnea/hypoxia. Speaking clear full sentences, ambulatory with steady gait. Discussed conservative treatment including rest, hydration, Tylenol/ibuprofen as needed for fever and body aches, saline nasal spray, humidifier, [id number] cold medication. Advised to follow-up with primary care provider as needed, discussed reasons to return back to the emergency d epartment. All questions were answered. Patient discharged home in stable condition. Differential Diagnosis Differential Diagnoses: The differential diagnosis associated with the presentation includes ( as noted above) Admission/Observation Consideration of admission/observation: Escalation of care including admission/observation considered ( see narrative above) Lab Data [facility] Lab Attestation statement: I reviewed the patient's lab results. ( as noted above) Labs: Lab Results 08/13/23 Range/Units 07:27 COVID-19 (KALYANI) Negative (Negative) COVID-19 Clin Com See Note Influenza Type A (YESSICA) Negative (Negative) Influenza Type B (YESSICA) Negative (Negative) Influenza A & B Note See Note Independent Interpretation I performed an independent interpretation of an: Plain X-Ray ( I personally interpreted chest x-ray and agree with radiologist impression.) Radiology Impression Radiologist Impression: XR/XR chest 2V IMPRESSION: No acute cardiopulmonary findings. External Record Review External record reviewed: Outpatient record Prescription Management I considered prescription management with: Antibiotic Discharge Plan Discharge Clinical Impression: COPD exacerbation Patient Disposition: Home, Self-Care Instructions: COPD (Chronic Obstructive Pulmonary Disease) (ED) Prescriptions: New azithromycin 250 mg tablet See Rx Instructions .ROUTE .COMPLEX Qty: 6 0RF Rx Instructions: For 250 mg dose pack: take 500 mg today (day 1), then 250 mg for 4 days (days 2-5) No Action albuterol sulfate [Ventolin HFA] 90 mcg/actuation HFA aerosol inhaler 2 puff inhalation Q2H PRN (Reason: shortness of breath or wheezing) Qty: 18 6RF fluticasone furoate-vilanterol 200-25 mcg/dose blister with device 1 inh inhalation DAILY 30 Days Qty: 1 6RF tiotropium bromide 18 mcg capsule, w/inhalation device 1 cap inhalation DAILY 30 Days Qty: 30 6RF Rx Instructions: puncture 1 cap using device; one dose = 2 inhalations albuterol sulfate 90 mcg/actuation aerosol powdr breath activated 2 inh inhalation Q4-6H PRN (Reason: shortness of breath or wheezing) Qty: 1 0RF ofloxacin 0.3 % drops 1 drp ophthalmic (eye) QID 7 Days Qty: 10 0RF metformin 500 mg tablet 500 mg PO BID aspirin [Adult Low Dose Aspirin] 81 mg tablet,delayed release (DR/EC) 81 mg PO DAILY lisinopril 2.5 mg tablet 2.5 mg PO DAILY glipizide 5 mg tablet extended release 24hr 5 mg PO DAILY atorvastatin 20 mg tablet 20 mg PO DAILY Creon 24,000-76,000 -120,000 unit capsule,delayed release(DR/EC) 1 cap PO BID Referrals: Shilo Garcia MD [Primary Care Provider] -
== END 2023-08-13 09:55 | disposition home or self-care (01) ==
PROVIDERS: Emergency Provider Emergency Medicine; PCP Internal Medicine
DX: J44.1 Chronic obstructive pulmonary disease with (acute) exacerbation (principal); H92.02 Otalgia, left ear; R05.9 Cough, unspecified; I25.10 Atherosclerotic heart disease of native coronary artery without angina pectoris; Z11.52 Encounter for screening for COVID-19; Z20.828 Contact with and (suspected) exposure to other viral communicable diseases; Z79.899 Other long term (current) drug therapy
CPT/HCPCS: 71046; 87502; 87635; 99283

== ENCOUNTER 2023-11-23 08:45 | Outpatient (AMB) | payer MEDICARE, SELFPAY ==
--- NOTE | 2023-11-23 08:56 | MHC.OFFVIS ---
Intake Vital Signs 11/23/23 08:57 Height 5 ft 10 in Weight 149 lb 14.629 oz BMI 21.5 BP 122/64 Blood Pressure Location Rt brachial Position Sitting Pulse 72 Pulse Source Doppler Pulse Oximetry (%) 95 Oxygen Delivery Method Room Air Intake Visit Reasons: COPD Allergies No Known Allergies Allergy (Verified 11/23/23 09:02) HPI COPD HPI Details 83-year-old gentleman, active 50+ pack-year smoker, followed for moderate COPD and pulmonary nodules.? At the last office visit he was switched to generic Breo plus Spiriva from [employer] secondary to cost issues. He denies any recent exacerbations. [facility] Medical History Tubular adenoma of colon (~2011) CAD (coronary artery disease) Hx of myocardial infarction (~1991) Hypertension Hyperlipidemia Diabetes Moderate COPD (chronic obstructive pulmonary disease) Smoker History of bladder cancer (~1996) Surgical History History of heart artery stent History of cystoscopy History of colonoscopy History of cholecystectomy History of left ankle joint replacement History of nasal surgery Social History (Updated 06/21/23 @ 08:55 by CARLITOS Jama) Are you a primary residential care facility manager to a significant other at home: No Do you presently have visiting nurse or other home services: No Alcohol intake: never Patient Tobacco Use Status: Current everyday Tobacco user (3 cigarettes a day ) Tobacco use type: Cigarette Cigarettes Per Day: 4 Years Smoked: 40 Review of Systems Const Denies daytime sleepiness, Denies excessive sweating, Denies fatigue, Denies fever(s), Denies lethargy, Denies malaise, Denies night sweats, Denies snoring and Denies weight loss Eyes Denies blurry vision and Denies itchy eyes ENT Denies nasal congestion, Denies post nasal drip, Denies sinus pain, Denies sinus pressure and Denies other ( Thrush) Card Denies chest pain, Denies pedal edema, Denies dyspnea, Denies orthopnea and Denies paroxysmal nocturnal dyspnea Resp Denies cough, Denies hemoptysis, Denies excessive phlegm production, Denies dyspnea, Denies snoring and Denies wheezing GI Denies abdominal pain and Denies heartburn Musc Denies myalgias, Denies arthralgias and Denies joint swelling Skin/Breast Denies rash Neuro Denies memory loss and Denies seizure-like activity Psych Denies abnormal sleep pattern, Denies anxiety and Denies memory loss Endo Denies excessive sweating, Denies fatigue and Denies heat intolerance Jerry/Lymph Denies easy bruising Aller/Immun Denies itchy eyes, Denies seasonal rhinorrhea and Denies wheezing Physical Exam Vital Signs: Last Vital Signs Pulse 72 11/23/23 08:57 BP 122/64 11/23/23 08:57 Pulse Ox 95 11/23/23 08:57 Oxygen Delivery Method Room Air 11/23/23 08:57 BMI result Body Mass Index 21.5 Const General: no acute distress and alert Nutritional Appearance: not obese Orientation/consciousness: Other orientation findings ( oriented) HEENT Head: Yes atraumatic Eyes General: appearance normal, both eyes and all related structures Sclerae: sclerae normal EOM: EOMs intact bilaterally Neck Neck: Yes supple Lymphatic: no lymphadenopathy noted Resp Effort & Inspection: normal respiratory effort and no use of accessory muscles Auscultation: clear to auscultation bilaterally Cardio Rate: regular rate Rhythm: regular rhythm Heart sounds: no gallops, no murmurs and no rubs Skin General skin exam: other ( warm) Extrem General: No clubbing, No cyanosis and No edema Assessment & Plan Assessment & Plan (1) Moderate COPD (chronic obstructive pulmonary disease): Code(s): J44.9 - Chronic obstructive pulmonary disease, unspecified Plan: Well controlled on generic Breo, albuterol MDI, and Spiriva. Continue current regimen. (2) Personal history of nicotine dependence: Code(s): Z87.891 - Personal history of nicotine dependence Plan: Results of lung cancer screening CT reviewed, no worrisome nodules at this time. Continue with yearly screening, next in January 2024. Orders: Orders CT lung screening 01/23/24 Z87.891 - Personal history of nicotine dependence Coding Level of Care Code Est Pt Level 4 (45127) Diagnoses Moderate COPD (chronic obstructive pulmonary disease) J44.9 Personal history of nicotine dependence Z87.891
[2023-11-23 08:57] VITALS: BP 122/64; PULSE 72; O2SAT 95; BMI 21.5
== END 2023-11-23 09:13 | disposition home or self-care (01) ==
PROVIDERS: PCP Internal Medicine; Visit Provider Internal Medicine Pulmonary Disease
DX: J44.9 Chronic obstructive pulmonary disease, unspecified (principal); Z87.891 Personal history of nicotine dependence
CPT/HCPCS: 99214

== ENCOUNTER → 2023-11-23 08:45 | Outpatient (BNVA) | payer MEDICARE, SELFPAY | PROVIDERS: PCP Internal Medicine; Visit Provider Internal Medicine Pulmonary Disease | DX: J44.9 Chronic obstructive pulmonary disease, unspecified (principal); Z87.891 Personal history of nicotine dependence | CPT/HCPCS: 99212 ==

== ENCOUNTER 2024-01-27 07:44 | Outpatient (REF) | payer MEDICARE, SELFPAY ==
--- NOTE | ~2024-01-27 | CT_ITS ---
EXAMINATION: CT CHEST WITHOUT CONTRAST CLINICAL INFORMATION: Pulmonary nodule. COMPARISON: Multiple priors, most recently on cancer screening CT chest 12/24/2022. TECHNIQUE: Multidetector volumetric CT imaging of the chest was done. Axial MIP volume rendering provided. Sagittal and coronal reformatted images were obtained. This CT examination was performed using dose optimization techniques as appropriate, variously including the following: *Automated exposure control *Adjustment of mA and/or kV according to patient size (this includes techniques or standardized protocols for targeted exams where dose is matched to indication/reason for exam; i.e. extremities or head) *Use of iterative reconstruction technique DLP: 133 mGy-cm FINDINGS: LUNGS: Emphysema. Chronic airway wall thickening. No significant air trapping by CT. Tree-in-bud airspace disease in the lingula consistent with bronchiolitis. Scattered 2-3 mm pulmonary nodules are stable compared to prior. An oval smooth 4.3 mm average diameter nodule in the right lower lobe is stable (series 5 image 365). MEDIASTINUM: No adenopathy. No aortic aneurysm. CORONARY ARTERY CALCIFICATION: Present. PLEURA: There is no pleural effusion. No pleural mass or thickening. AXILLA: No lymphadenopathy. UPPER ABDOMEN: Cholecystectomy. OSSEOUS STRUCTURES: Degenerative changes in the spine. CT/CT chest wo IV con IMPRESSION: Tree-in-bud airspace disease in the lingula consistent with bronchiolitis. Otherwise stable chest CT.
== END 2024-01-27 07:45 | disposition home or self-care (01) ==
LOC: HO.CT 07:44
PROVIDERS: PCP Internal Medicine; Visit Provider Internal Medicine Pulmonary Disease
DX: R91.8 Other nonspecific abnormal finding of lung field (principal)
CPT/HCPCS: 71250

== ENCOUNTER 2024-05-29 08:44 | Outpatient (AMB) | payer MEDICARE, SELFPAY ==
[2024-05-29 08:56] VITALS: BP 128/62; PULSE 71; O2SAT 96; BMI 21.4
--- NOTE | 2024-05-29 08:56 | A.OFFVIS_ITS ---
Vital Signs 05/29/24 08:56 Height 5 ft 10 in Weight 149 lb BMI 21.4 BP 128/62 Blood Pressure Location Rt brachial Position Sitting Pulse 71 Pulse Source Doppler Pulse Oximetry (%) 96 Oxygen Delivery Method Room Air Intake Visit Reasons: COPD Allergies No Known Allergies Allergy (Verified 05/29/24 09:01) HPI HPI COPD: Details: 83-year-old gentleman, active 50+ pack-year smoker, followed for moderate COPD and pulmonary nodules.? He continues on Breo and Spiriva and rarely requires to use his albuterol MDI. His symptoms are well controlled. He denies any recent exacerbations. [facility] Medical History Tubular adenoma of colon (~2011) CAD (coronary artery disease) Hx of myocardial infarction (~1991) Hypertension Hyperlipidemia Diabetes Moderate COPD (chronic obstructive pulmonary disease) Smoker History of bladder cancer (~1996) Surgical History History of heart artery stent History of cystoscopy History of colonoscopy History of cholecystectomy History of left ankle joint replacement History of nasal surgery Social History Are you a primary career orientation teacher to a significant other at home: No Do you presently have visiting nurse or other home services: No Alcohol intake: never Patient Tobacco Use Status: Current everyday Tobacco user (3 cigarettes a day ) Tobacco use type: Cigarette Cigarettes Per Day: 4 Years Smoked: 40 Review of Systems Const Denies daytime sleepiness, Denies excessive sweating, Denies fatigue, Denies fever(s), Denies lethargy, Denies malaise, Denies night sweats, Denies snoring and Denies weight loss Eyes Denies blurry vision and Denies itchy eyes ENT Denies nasal congestion, Denies post nasal drip, Denies sinus pain, Denies sinus pressure and Denies other ( Thrush) Card Denies chest pain, Denies pedal edema, Denies dyspnea, Denies orthopnea and Denies paroxysmal nocturnal dyspnea Resp Denies cough, Denies hemoptysis, Denies excessive phlegm production, Denies dyspnea, Denies snoring and Denies wheezing GI Denies abdominal pain and Denies heartburn Musc Denies myalgias, Denies arthralgias and Denies joint swelling Skin/Breast Denies rash Neuro Denies memory loss and Denies seizure-like activity Psych Denies abnormal sleep pattern, Denies anxiety and Denies memory loss Endo Denies excessive sweating, Denies fatigue and Denies heat intolerance Jerry/Lymph Denies easy bruising Aller/Immun Denies itchy eyes, Denies seasonal rhinorrhea and Denies wheezing Physical Exam Vital Signs: Last Vital Signs Pulse 71 05/29/24 08:56 BP 128/62 05/29/24 08:56 Pulse Ox 96 05/29/24 08:56 Oxygen Delivery Method Room Air 05/29/24 08:56 BMI result Body Mass Index 21.4 Const General: no acute distress and alert Nutritional Appearance: not obese Orientation/consciousness: Other orientation findings ( oriented) HEENT Head: Yes atraumatic Eyes General: appearance normal, both eyes and all related structures Sclerae: sclerae normal EOM: EOMs intact bilaterally Neck Neck: Yes supple Lymphatic: no lymphadenopathy noted Resp Effort & Inspection: normal respiratory effort and no use of accessory muscles Auscultation: clear to auscultation bilaterally Cardio Rate: regular rate Rhythm: regular rhythm Heart sounds: no gallops, no murmurs and no rubs Skin General skin exam: other ( warm) Extrem General: No clubbing, No cyanosis and No edema Assessment & Plan Assessment & Plan (1) Moderate COPD (chronic obstructive pulmonary disease): Code(s): J44.9 - Chronic obstructive pulmonary disease, unspecified Category: Medical Plan: Well controlled on current regimen of Breo, Spiriva, and albuterol MDI. Continue current regimen. (2) Personal history of nicotine dependence: Code(s): Z87.891 - Personal history of nicotine dependence Category: Medical Plan: Results of lung cancer screening CT chest from January of 2024 reviewed, no worrisome nodules. Will discontinue lung cancer screening at this time as patient is outside of screening interval. Coding Level of Care Code Est Pt Level 4 (38413) Diagnoses Moderate COPD (chronic obstructive pulmonary disease) J44.9 Personal history of nicotine dependence Z87.891
== END 2024-05-29 09:15 | disposition home or self-care (01) ==
PROVIDERS: PCP Internal Medicine; Visit Provider Internal Medicine Pulmonary Disease
DX: J44.9 Chronic obstructive pulmonary disease, unspecified (principal); Z87.891 Personal history of nicotine dependence
CPT/HCPCS: 99214

== ENCOUNTER → 2024-05-29 08:44 | Outpatient (BNVA) | payer MEDICARE, SELFPAY | PROVIDERS: PCP Internal Medicine; Visit Provider Internal Medicine Pulmonary Disease | DX: J44.9 Chronic obstructive pulmonary disease, unspecified (principal); R91.8 Other nonspecific abnormal finding of lung field; F17.210 Nicotine dependence, cigarettes, uncomplicated | CPT/HCPCS: 99212 ==

== ENCOUNTER 2025-01-01 14:27 | Outpatient (AMB) | payer MEDICARE, SELFPAY ==
[2025-01-01 14:33] VITALS: BP 122/60; PULSE 72; O2SAT 95; BMI 21.8
--- NOTE | 2025-01-01 14:33 | MHC.OFFVIS ---
Vital Signs 01/01/25 14:33 Height 5 ft 10 in Weight 152 lb BMI 21.8 BP 122/60 Blood Pressure Location Rt brachial Position Sitting Pulse 72 Pulse Source Pulse Oximeter Pulse Oximetry (%) 95 Oxygen Delivery Method Room Air Intake Visit Reasons: copd Allergies No Known Allergies Allergy (Verified 05/29/24 09:01) HPI HPI copd: Details: 84-year-old gentleman, active 50+ pack-year smoker, followed for moderate COPD and pulmonary nodules.? He continues on Breo and Spiriva and rarely requires to use his albuterol MDI. His symptoms are well controlled. He denies any recent exacerbations. He has aged out of lung cancer screening program. [facility] Medical History Tubular adenoma of colon (~2011) CAD (coronary artery disease) Hx of myocardial infarction (~1991) Hypertension Hyperlipidemia Diabetes Moderate COPD (chronic obstructive pulmonary disease) Smoker History of bladder cancer (~1996) Surgical History History of heart artery stent History of cystoscopy History of colonoscopy History of cholecystectomy History of left ankle joint replacement History of nasal surgery Social History Are you a primary home health care worker to a significant other at home: No Do you presently have visiting nurse or other home services: No Alcohol intake: never Patient Tobacco Use Status: Current everyday Tobacco user (3 cigarettes a day ) Tobacco use type: Cigarette Cigarettes Per Day: 4 Years Smoked: 40 Review of Systems Const Denies daytime sleepiness, Denies excessive sweating, Denies fatigue, Denies fever(s), Denies lethargy, Denies malaise, Denies night sweats, Denies snoring and Denies weight loss Eyes Denies blurry vision and Denies itchy eyes ENT Denies nasal congestion, Denies post nasal drip, Denies sinus pain, Denies sinus pressure and Denies other ( Thrush) Card Denies chest pain, Denies pedal edema, Denies dyspnea, Denies orthopnea and Denies paroxysmal nocturnal dyspnea Resp Denies cough, Denies hemoptysis, Denies excessive phlegm production, Denies dyspnea, Denies snoring and Denies wheezing GI Denies abdominal pain and Denies heartburn Musc Denies myalgias, Denies arthralgias and Denies joint swelling Skin/Breast Denies rash Neuro Denies memory loss and Denies seizure-like activity Psych Denies abnormal sleep pattern, Denies anxiety and Denies memory loss Endo Denies excessive sweating, Denies fatigue and Denies heat intolerance Jerry/Lymph Denies easy bruising Aller/Immun Denies itchy eyes, Denies seasonal rhinorrhea and Denies wheezing Physical Exam Vital Signs: Last Vital Signs Pulse 72 01/01/25 14:33 BP 122/60 01/01/25 14:33 Pulse Ox 95 01/01/25 14:33 Oxygen Delivery Method Room Air 01/01/25 14:33 BMI result Body Mass Index 21.8 Const General: no acute distress and alert Nutritional Appearance: not obese Orientation/consciousness: Other orientation findings ( oriented) HEENT Head: Yes atraumatic Eyes General: appearance normal, both eyes and all related structures Sclerae: sclerae normal EOM: EOMs intact bilaterally Neck Neck: Yes supple Lymphatic: no lymphadenopathy noted Resp Effort & Inspection: normal respiratory effort and no use of accessory muscles Auscultation: clear to auscultation bilaterally Cardio Rate: regular rate Rhythm: regular rhythm Heart sounds: no gallops, no murmurs and no rubs Skin General skin exam: other ( warm) Extrem General: No clubbing, No cyanosis and No edema Assessment & Plan Assessment & Plan (1) Moderate COPD (chronic obstructive pulmonary disease): Code(s): J44.9 - Chronic obstructive pulmonary disease, unspecified Category: Medical Plan: Well controlled on Spiriva, Breo, and albuterol MDI. Continue current regimen. Medications: Refilled Ventolin HFA 90 mcg/actuation (albuterol sulfate) 2 puffs inhalation Q2H PRN 18 grams 6RF shortness of breath or wheezing NS Coding Level of Care Code Est Pt Level 3 (37750) Diagnoses Moderate COPD (chronic obstructive pulmonary disease) J44.9
--- OUTSIDE RECORDS SUMMARY | 2025-01-01 15:51 | XMS_ITS | Continuity of Care Document ---
Author Name [facility] Organization [facility] Care Team Providers Care Radio Communications Mechanician Name Role Phone [facility] Unavailable Unavailable Problems Combined list of problems from Department of Defense and Veterans Affairs facilities. It does not include entries that were removed or entered in error. Problem Status Onset Date Problem Type Date of Resolution Comments Source CAD - Coronary Artery Disease ([facility] [id number]) Active Condition [facility] Carcinoma of Prostate ([facility] [id number]) Active Condition [facility] COPD - Chronic Obstructive Pulmonary Disease ([facility] [id number]) Active Condition Dec 07, 2024 Entered By: AMANDA FRANKLIN Comment: trelegy + albuterol. Dr Reeder/Thalia [facility] Diabetes Mellitus Type 2 ([facility] [id number]) Active Condition [facility] Eczema Active Condition [facility] HTN - Hypertension ([facility] [id number]) Active Condition [facility] Mixed Hyperlipidemia ([facility] [id number]) Active Condition [facility] Tobacco User ([facility] [id number]) Active Condition Dec 07, 2024 Entered By: AMANDA FRANKLIN Comment: 40+ yrs. now 5 cig/d [facility] Diagnosis: ICD-10-CM J44.9 Chronic obstructive pulmonary disease, unspecified Active Diagnosis [facility] Medications Combined list of outpatient medications from Department of Defense and Veterans Affairs facilities.Medications provided include 1) outpatient medications from the last 15 months, and 2) patient-reported medications. Medication Details Route Status Patient Instructions Prescription Expires Prescription Number Last Dispense Date Ordering Provider Order Date Order Qty Source ALBUTEROL 90MCG/ACTUA T (CFC-F) INHL,ORAL,8 .5GM DOSE COUNTER INHALE 2 PUFFS BY MOUTH FOUR TIMES DAILY NEEDED RESPIR ATORY (INHAL ATION) ACTIVE AUGUSTIN-VE SANTANA,[place] SANTIAGOVALERIE BUTLER 2024 [facility] AMYLASE 120,000UNIT /LIPASE 24,000UNIT/ PROTEASE 76,000UNIT CAP,EC TAKE 2 CAPSULES BY MOUTH TWICE DAILY ORAL ACTIVE AUGUSTIN-VE SANTANA,[place] CLAUDIA BUTLER 2024 [facility] ASPIRIN 81MG TAB,EC TAKE ONE TABLET BY MOUTH ONCE DAILY ORAL ACTIVE AUGUSTIN-VE SANTANA,[place] BUTLER 2024 [facility] ATORVASTATI N CA 40MG TAB TAKE ONE-HALF TABLET BY MOUTH ONCE DAILY ORAL ACTIVE AUGUSTIN-VE SANTANA,[place] BUTLER [address] [facility] BETAMETHASO NE DIPROPIONAT E 0.05% AUGMENTED CREAM APPLY A THIN LAYER TOPICALL Y ONCE DAILY NEEDED TOPICA L ACTIVE AUGUSTIN-MARY DILLON,KENTON BUTLER 2024 [facility] FLUTICASONE 100/UMECLID INIUM 62.5/VILANT PAIGE 25MCG/ACTUA T INH,30 INHALE 1 INHALATI ON BY MOUTH ONCE DAILY RESPIR ATORY (INHAL ATION) ACTIVE AUGUSTIN-MARY DILLON,KENTON BUTLER 2024 [facility] GLIPIZIDE 5MG TAB,SA TAKE ONE TABLET BY MOUTH ONCE DAILY ORAL ACTIVE AUGUSTIN-VE SANTANA,KENTON BUTLER 2024 [facility] LISINOPRIL 10MG TAB TAKE ONE TABLET BY MOUTH ONCE DAILY ORAL ACTIVE AUGUSTIN-VE SANTANA,K[place] BUTLER 2024 [facility] METFORMIN HCL 1000MG TAB TAKE ONE TABLET BY MOUTH TWICE DAILY ORAL ACTIVE AUGUSTIN-VE SANTANA,KENTON BUTLER 2024 [facility] VITAMIN B COMPLEX CAP,ORAL TAKE BY MOUTH ONCE DAILY ORAL ACTIVE KENTON ONEIL 2024 [facility] Immunizations Combined list of available immunizations from the Department of Defense and Veterans Affairs facilities. Immunization Series Date Given Administered By Site Reaction Lot Number CVX Code Drug Clerical Associate Status Comments Source COVID-19 ([facility]), MRNA, LNP-S, PF, GARRETT-SUCROSE, 30 MCG/0.3 ML (AGES 12+ YEARS) 2024 309 complet ed Booster for Series, HISTORICA L INFORMATI ON - FROM OTHER PROVIDER, [facility] COVID-19 ([facility]), MRNA, LNP-S, PF, GARRETT-SUCROSE, 30 MCG/0.3 ML (AGES 12+ YEARS) 2023 309 complet ed Booster for Series, HISTORICA L INFORMATI ON - FROM OTHER PROVIDER, [facility] INFLUENZA, UNSPECIFIED FORMULATION 2023 88 complet ed HISTORICA L INFORMATI ON - FROM OTHER PROVIDER, [facility] RSV, RECOMBINANT, PROTEIN SUBUNIT RSVPREF3, ADJUVANT RECONSTITUTED , 0.5 ML, PF 2023 303 complet ed HISTORICA L INFORMATI ON - FROM OTHER REGISTRY, [facility] COVID-19 ([facility]), MRNA, LNP-S, PF, GARRETT-SUCROSE, 30 MCG/0.3 ML (AGES 12+ YEARS) 2022 309 complet ed Booster for Series, HISTORICA L INFORMATI ON - FROM OTHER REGISTRY, [facility] COVID-19 ([facility]), MRNA, LNP-S, PF, 30 MCG/0.3 ML DOSE 2020 208 complet ed Booster for Series, HISTORICA L INFORMATI ON - FROM OTHER PROVIDER, [facility] COVID-19 ([facility]), MRNA, LNP-S, PF, 30 MCG/0.3 ML DOSE 2 2020 208 complet ed HISTORICA L INFORMATI ON - FROM OTHER PROVIDER, [facility] COVID-19 (PFIZER), MRNA, LNP-S, PF, 30 MCG/0.3 ML DOSE 1 2020 208 complet ed HISTORICA L INFORMATI ON - FROM OTHER PROVIDER, [facility] [place] [facility] PNEUMOCOCCAL POLYSACCHARID E PPV23 2017 33 complet ed HISTORICA L INFORMATI ON - [facility]RY[facility] TDAP 2015 115 complet ed HISTORICA L INFORMATI ON - FROM PATIENT'S WRITTEN RECORD, [facility] Vital Signs Combined list of inpatient and outpatient Vital Signs from Department of Defense and Veterans [facility], ranging from 12 months to all on record, depending upon the facility. Vital Sign Value Date Comments Source SYSTOLIC BLOOD PRESSURE 144 12/07/19 25 10:54:00 [facility] [place] [facility] DIASTOLIC BLOOD PRESSURE 80 025 10:54:00 [facility] [place] [facility] PULSE OXIMETRY 98 12/06/2024 10:54:00 [facility] [place] [facility] WEIGHT 152 12/06/2024 10:54:00 [facility] [place] [facility] BMI 22 kg/m2 12/06/2024 10:54:00 [facility] [place] [facility] PAIN 0 12/06/2024 10:54:00 [facility] [place] [facility] HEIGHT 69 12/06/2024 10:54:00 [facility] [place] [facility] TEMPERATURE 97.9 12/06/2024 10:54:00 [facility] [place] [facility] PULSE 68 12/06/2024 10:54:00 [facility] [place] [facility] RESPIRATION 16 12/06/2024 10:54:00 [facility] [place] [facility] Encounters Combined list of: 1) Encounters from Department of Veterans Affairs facilities going backup to the last 18 months, not all [place] inpatient encounters are included; 2) Encounters from the Department of Defense facilities going backup to 280 months. Location Location Details Encounter Type Encounter Number Reason For Visit Attending Provider ADM Date DC Date Status Disposition Source [facility] Outpatient Encounter [id number] 04/23 [facility] [place] [facility] [place] [facility] Outpatient Encounter [id number] 05/04 [facility] [place] [facility] [place] [facility] Outpatient Encounter [id number] 11/06 [facility] [place] [facility] [place] [facility] OFFICE O/P NEW MOD 45 MIN [id number] Diagnos is: ICD-10- CM J44.9 Chronic obstruc tive pulmona ry disease , unspeci fied MARIA EUGENIA MINA 12/06 [facility] [place] [facility] [place] [facility] Outpatient Encounter [id number] 12/10 [facility] [place] [facility] [place] [facility] Outpatient Encounter [id number] 12/24 [facility] [place] [facility] Social History Combined list of available smoking, tobacco, and other social history from Department of Defense and Veterans Affairs facilities. Social History Type Response Date Comment Sourc e Tobacco smoking status NHIS VA-TOBACCO USE EVERY DAY CIGARETTES 12/06/2024 [facility] [place] [facility] History of tobacco use ND-TOBACCO NEVER USED OTHER TYPE 12/06/2024 [facility] [place] [facility] Plan of Care List of future care activities from Department of Veterans Affairs facilities. Additional future care activities may be listed in the Assessment and Plan section. Date/Time Care Activity Care Activity Detail Facili ty 01/17/2025 AMBULATORY - MEDICINE AMBULATORY - MEDICI NE [facility] [place] [facility]
--- OUTSIDE RECORDS SUMMARY | 2025-01-01 15:51 | XMS_ITS ---
Author Organization [facility] Address [address] [place] [address] Care Team Providers Care Sort Worker Name Role Phone Jose MARTINEZ, Shilo Primary Care Provider Ryan Oliver [phone] REASON FOR VISIT screening,hx polyps Encounters Encounter Location Date Provider Diagnosis [facility] Outpatient [address] [place] [phone] 08/17/2024 Ryan Yarbrough Plan Of Treatment No Information Progress Notes * ANASTACIO URIASDOB:[birth year] (84 yo M)Acc No.[id number]:08/17/2024 COLON WITH MAC Patient:?ANASTACIO URIAS Provider:?Ryan Yarbrough MD :1940???Age:83 Y???Sex:Male Sarbjit e:08/17/2024 Address:[address] [place] [address] [place] Re[address] [facility] Pcp:Shilo Garcia MD Subjective: * Chief Complaints: * ???1. Screening,hx polyps. * Medical History:? Objective: * Vitals:? Assessment: Plan: * Treatment: * * The named appointment provid er may or may not be the originator of this progress note, and it is not deemed complete until electronically signed by the appointment provider. Sign off status: Pending * Provider:?Ryan Yarbrough MD Date:? 025 Generated for Printi ng/Faajitg/eTransmitting on:?01/01/2025 03:51 PM EDT
--- OUTSIDE RECORDS SUMMARY | 2025-01-01 15:51 | XMS_ITS | Encounter Summary ---
Author Organization [facility] Address [address] [place] [address] Care Team Providers Care Protective Clothing Issuer Name Role Phone Physician, Pcp Unknown Primary Care Provider Nicolette vailable Encounter Details Date Type Department Care Team (Late st Contact Info) Description 07/04/2024 Lab Requisition [facility] - Main Lab [address] [place] [address] Kev Mir MD [address] [place] [address] Malignant neoplasm of posterior wall of bladder (CMS/HCC V24, CMS/HCC V28); Malignant neoplasm of trigone of bladder (CMS/HCC V24, CMS/HCC V28) Social History Tobacco Use Types Packs/Day Years Used Date Smoking Tobacco: Never Assessed Sex and Gender Information Value Date Recorded Sex Assigned at Not on file Legal Sex Male 1:08 PM EST Gender Identity Not on file Sexual Orientation Not on file documented as of this encounter Plan of Treatment Not on file documented as of this encounter Procedures Procedure Name Priority Date/Time Associated Diagnosis Comments AP OUTSIDE CONSULT Routine 06/26/2024 12 :00 AM EST Malignant neoplasm of trigone of bladder (CMS/HCC) Malignant neoplasm of posterior wall of bladder (CMS/HCC) documented in this encounter Results * Anatomic pathology outside consult (06/26/2024 12:00 AM EST) Final Diagnosis Urine, Voided: Negative for high grade urothelial carcinoma. Results of [employer] fluorescence in situ hybridization (FISH) testing: CEP3: Normal CEP7: Normal CEP17: Normal LSI 9p21: Normal Interpretation: Normal profile Controls stained appropriately. Note: The results are intended as a screening device and should be interpreted in association with other clinical and pathological findings. 07/13/2024 8:[address] [facility] Clinical Information [id number] Cytology/FISH 07/13/2024 8:[address] [facility] Gross Description A. Urine, Voided, : [id number] Received 1 TP (CYTO) 1 TP (FISH) 07/13/2024 8:[address] [facility] Disclaimer Unless otherwise specified, all tissue is 10% NB formalin fixed and paraffin embedded. 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
--- OUTSIDE RECORDS SUMMARY | 2025-01-01 15:51 | XMS_ITS | Encounter Summary ---
Author Organization [facility] Address [address] [place] [address] Care Team Providers Care Plumbing Drafter Name Role Phone Physician, Pcp Unknown Primary Care Provider Nicolette vailable Encounter Details Date Type Department Care Team (Late st Contact Info) Description 12/28/2024 Lab Requisition [facility] - Main Lab [address] [place] [address] Kev Mir MD [address] [place] [address] Personal history of malignant neoplasm of bladder; Malignant neoplasm of trigone of bladder (CMS/[facility] V24, CMS/[facility] V28) Social History Tobacco Use Types Packs/Day Years Used Date Smoking Tobacco: Never Assessed Sex and Gender Information Value Date Recorded Sex Assigned at Not on file Legal Sex Male 1:08 PM EST Gender Identity Not on file Sexual Orientation Not on file documented as of this encounter Plan of Treatment Pending Results Name Type Priority Associated Diagnoses Date /Time Anatomic pathology outside consult Pathology and Cytology Routine Personal history of malignant neoplasm of bladder Malignant neoplasm of trigone of bladder (CMS/HCC V24, CMS/HCC V28) 12/25/2024 12:00 AM EDT documented as of this encounter Visit Diagnoses Diagnosis Personal history of malignant neoplasm of bladder Malignant neoplasm of trigone of bladder (CMS/HCC V24, CMS/HCC V28) Malignant neoplasm of trigone of urinary bladder documented in this encounter Care Teams Plumbing Drafter Relationship Specialty Start Date End Date Physician, Pcp Unknown PCP - General 12/28/24 documented as of this encounter
--- OUTSIDE RECORDS SUMMARY | 2025-01-01 15:51 | XMS_ITS | Clinical Summary ---
Author Organization [address] [facility] Address [address] [place] [address] Phone Care Team Providers Care Rose Grading Supervisor Name Role Phone Physician, Pcp Unknown Primary Care Provider Nicolette vailable Encounters Date Type Department Care Team Description 12/28/2024 Lab Requisition [facility] - Main Lab [address] [facility] [place] [place] [address] Kev Mir MD Personal history of malignant neoplasm of bladder; Malignant neoplasm of trigone of bladder (CMS/HCC V24, CMS/HCC V28) from Last 3 Months Social History Tobacco Use Types Packs/Day Years Used Date Smoking Tobacco: Never Assessed Sex and Gender Information Value Date Recorded Sex Assigned at Not on file Legal Sex Male 1:08 PM EST Gender Identity Not on file Sexual Orientation Not on file Plan of Treatment Health Maintenance Due Date Last Done Comments COVID-19 Vaccine (#1) 1945 DTaP,Tdap,and Td Vaccines (1 - Tdap) 1961 Pneumococcal Vaccine: 50+ Ye ars (1 of 2 - PCV) 1961 Zoster Vaccines (1 of 2) 1961 RSV Immunization Adult Patie nts (1 - 1-dose 75+ series) 2017 Cholesterol Screening (Lipid Panel) 07/04/2024 Depression Screening 07/04/2024 Falls Risk Assessment 07/04/2024 Medicare Annual Wellness Visit 07/04/2024 Social Influencers of Health Screening 07/04/2024 Influenza Vaccine (Season Ended) 2025 HIB Vaccines Aged Out No longer eligi ble based on patient's age to complete this topic HPV Vaccines Aged Out No longer eligi ble based on patient's age to complete this topic Hepatitis A Vaccines Aged Out No long er eligible based on patient's age to complete this topic Hepatitis B Vaccines Aged Out No long er eligible based on patient's age to complete this topic IPV Vaccines Aged Out No longer eligi ble based on patient's age to complete this topic MMR Vaccines Aged Out No longer eligi ble based on patient's age to complete this topic Meningococcal ACWY Vaccine Aged Out N o longer eligible based on patient's age to complete this topic Meningococcal B Vaccine Aged Out No l onger eligible based on patient's age to complete this topic RSV Immunization Patients Un luis 20 months Aged Out No longer eligible b ased on patient's age to complete this topic Varicella Vaccines Aged Out No longer eligible based on patient's age to complete this topic Insurance MEDICARE [facility] Care Teams Rose Grading Supervisor Relationship Specialty Start Date End Date Physician, Pcp Unknown PCP - General 12/28/24
--- OUTSIDE RECORDS SUMMARY | 2025-01-01 15:52 | XMS_ITS | Patient Health Record ---
Author Organization [facility] Address [address] [place] [address] Care Team Providers Care Mainspring Former Brace End Name Role Phone Shilo Garcia MD Primary Care Provider Ryan Oliver Unavailable [phone] Allergies No Known Allergies Reason For Referral No Information Medications Medication SIG (Take, Route, Frequency, Duration) Notes Start Date End Date Status Nadolol 10 mg 1 tablet Orally PRN Not-Taking glipiZIDE ER 5 MG 1 tablet with breakfast Orally Once a day Active Creon 78236 UNIT 2 Orally with each meal Only taking 2 QD with breakfast Active Lisinopril 2.5 MG Orally once a day Active Trelegy Ellipta 100-62.5-25 MCG/INH 1 puff Inhalation Once a day Active Atorvastatin Calcium 20 MG 1 tablet Orally Once a day for 30 day(s) Active Aspir-Low 81 MG 1 tablet Orally Once a day Active Creon 99229-08192 UNIT TAKE TWO CAPSULES BY MOUTH WITH EACH MEAL for 30 Active metFORMIN HCl 500 MG 1 tablet with meals Orally Twice a day Active Immunizations Vaccine Route Administration Date Status Comme nts Influenza Unknown 04/15/2019 Administered Influenza Unknown 04/15/2021 Administered Social History Tobacco Use: Social History Observation Description Date Details (start date - stop date) Current Smoker NA - NA Tobacco Use/Smoking Question Answer Notes Patient is a current smoker How often do you smoke cigarettes? every day How many cigarettes a day do you smoke? 5 or les s How soon after you wake up do you smoke your fir st cigarette? after 60 minutes Section Notes: He smokes, and uses only occ asional alcohol He smokes, and uses only occ asional alcohol He smokes 4 or 5 cigarettes per week, and uses only occasional alcohol He smokes 4 or 5 cigarettes per week, and uses only occasional alcohol He smokes 4 or 5 cigarettes per week, and uses only occasional alcohol He smokes 4 or 5 cigarettes per week, and uses only occasional alcohol He smokes 4 or 5 cigarettes per week, and uses only occasional alcohol He smokes 4 or 5 cigarettes per week, and uses only occasional alcohol Problems Problem Type SNOMED Code ICD Code Onset Dates Problem Status W/U Status Risk Notes Problem 998047047 Encounter for screening for malignant neoplasm of colon (Z12.11) Active confirmed Problem 715126855 History of adenomatous polyp of colon (Z86.010) Active confirmed Problem Screening for malignant neoplasm of rectum (742717281) Encounter for screening for malignant neoplasm of rectum (Z12.12) Active confirmed Problem 306258408 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 Problem 35499675 Pancreatic insufficiency (K86.89) Active confirmed Encounters Encounter Location Date Provider Diagnosis [facility] [address] [place] [phone] 04/18/2024 Ryan Yarbrough [facility] [address] [place] [phone] 07/24/2024 Ryan Yarbrough [facility] [address] [place] [phone] 10/12/2024 Ryan Yarbrough Plan Of Treatment Pending Test Test Name Order Date MRI ABD NO CONTRAST (MRCP) 10/19/2011 MRI ABD W&WO CONTRAST 10/19/2011 Future Test Test Name Order Date COLONOSCOPY 07/06/2013 COLONOSCOPY 11/04/2016 COLONOSCOPY 02/08/2020 COLONOSCOPY 11/08/2023 Insurance Providers Payer Name Payer Address Payer Phone Subscriber Number Group Number Insured Name Patient Relationship to Insured Coverage Start Date Coverage End Date MEDICARE OF [place] [address] [place] [address] [phone] [id number] ANASTACIO URIAS Self - patient is the insured [employer] ATT[employer] CLAIMS [address] [place] [address] [id number] ANASTACIO URIAS Self - patient is the insured Medical (General) History Medical History History ICD Code Gallstone induced pancreatit is-in 07/2011-A MRI at that time, and a followup in October of 2011, had shown some pancreatic calcifications and a mildly dilated pancreatic duct, but without any sign of a mass--had a CA 19-9 level of 170 in 07/2013, but was down to 49 in 2013. NIDDM Hyperlipidemia Hypertension Coronary artery disease with previous ND approx 1991 with1 stent placed-at [facility] Transitional cell cancer of the bladder Denies CVA,Lung disease,renal disease Colonoscopy in 04/2012 with removal of > 10 adenomas Colonoscopy in 08/2013 with the removal o f 1 tubular adenoma Nonhealing wound on the righ t side of his nose from a cat scratch--he was seen at the wound clinic Colonoscopy in 01/2017 with multiple smal l tubular adenomas type II diabetes Colonoscopy in 06/2020 with removal of tubular adenomas and 1 sessile serrated polyp Surgical History Surgery Date(Month/Year) cholecystectomy in July 2011 after an episode of gallstone-induced pancreatitis nasal surgery ankle replacement-left 01/2015
--- OUTSIDE RECORDS SUMMARY | 2025-01-01 15:52 | XMS_ITS ---
Author Organization [facility] Address [address] [place] [address] Care Team Providers Care Technical Illustrations Map Inker Name Role Phone Jose MARTINEZ, Shilo Primary Care Provider Ryan Oliver [phone] REASON FOR VISIT screening,hx polyps Encounters Encounter Location Date Provider Diagnosis [facility] [address] [place] [phone] 11/09/2024 Ryan Yarbrough Plan Of Treatment No Information Progress Notes * ANASTACIO URIASDOB:[birth year] (84 yo M)Acc No.[id number]:11/09/2024 COLON WITH MAC Patient:?ANASTACIO URIAS Provider:?Ryan Yarbrough MD :1940???Age:84 Y???Sex:Male Sarbjit e:11/09/2024 Address:[address] [place] [address] [address] Re[address] [facility] Pcp:Shilo Garcia MD Subjective: * Chief Complaints: [...]
--- OUTSIDE RECORDS SUMMARY | 2025-01-01 15:52 | XMS_ITS ---
Author Organization [facility] Address [address] [place] [address] Care Team Providers Care Flatwork Washer Name Role Phone Shilo Garcia MD Primary Care Provider Ryan Oliver [phone] REASON FOR VISIT cancel procedure Encounters Encounter Location Date Provider Diagnosis [facility] [address] [place] [address] 10/12/2024 Ryan Yarbrough Plan Of Treatment No Information Progress Notes * ANASTACIO URIASDOB:[birth year] (84 yo M)Acc No.[id number]:10/12/2024 Patient:?ANASTACIO URIAS :1940???Age:84 Y???Sex:Male Address:[address] [place], [place] [address], [address] * true * Date:? Generated for Woo hutchinson/Jim/eTransmitting on:?01/01/2025 03:51 PM EDT
== END 2025-01-01 14:55 | disposition home or self-care (01) ==
LOC: HO.HPS 14:27
PROVIDERS: PCP Internal Medicine; Visit Provider Internal Medicine Pulmonary Disease
DX: J44.9 Chronic obstructive pulmonary disease, unspecified (principal)
CPT/HCPCS: 99213

== ENCOUNTER → 2025-01-01 14:27 | Outpatient (BNVA) | payer MEDICARE, SELFPAY | PROVIDERS: PCP Internal Medicine; Visit Provider Internal Medicine Pulmonary Disease | DX: J44.9 Chronic obstructive pulmonary disease, unspecified (principal) | CPT/HCPCS: 99212 ==

== ENCOUNTER 2025-03-15 11:42 | Outpatient (AMB) | payer MEDICARE, SELFPAY ==
--- OUTSIDE RECORDS SUMMARY | 2024-11-09 04:30 | XMS_ITS ---
Author Organization [facility] Address [address] [place] [address] Care Team Providers Care Willow Specialists Name Role Phone Shilo Garcia MD Primary Care Provider Ryan Oliver [phone] REASON FOR VISIT screening,hx polyps Encounters Encounter Location Date Provider Diagnosis [facility] Outpatient [address] [place] [phone] 11/09/2024 Ryan Yarbrough Plan Of Treatment No Information Progress Notes * ANASTACIO URIASDOB:[birth year] (84 yo M)Acc No.[id number]:11/09/2024 COLON WITH MAC Patient: ANASTACIO KC Provider: Graeme Yarbrough MD :1940 A ge:84 Y S ex:Male Date:11/09/2024 Address:[address] [place], [place] [address] [facility] Pcp:Shilo Garcia MD Subjective: * Chief Complaints: [...] * Provider: Graeme Yarbrough MD Date: 0 11/09/2024 Generated for Printi ng/Faajitg/eTransmitting on: 0 03/15/2025 11:44 AM EDT
--- OUTSIDE RECORDS SUMMARY | 2025-03-15 11:44 | XMS_ITS | Clinical Summary ---
Author Organization [facility] Address [address] [address] Phone Care Team Providers Care Cargo And Ramp Services Manager Name Role Phone Shilo Garcia MD Primary Care Provider Ryan Yarbrough MD Unavailable [phone] Shilo Garcia MD Unavailable [phone] Allergies No known active allergies Medications aspirin 81 MG EC tablet Take 81 mg by mouth daily. Active pancrelipase, mzxnqq-jrxmbjat-fk ylase, (CREON) 24,000-76,000 -120,000 unit CpDR Take 2 capsules by mouth twice a day. Active VENTOLIN HFA 90 mcg/actuation inhaler Inhale 90 mcg into the lungs daily as needed. 02/27/20 20 Active betamethasone, augmented, (DIPROLENE AF) 0.05 % cream As needed 03/16/20 21 Active b complex vitamins tablet Take 1 tablet by mouth every other day. Active ascorbic acid (VITAMIN C ORAL) Take 1 tablet by mouth daily. Active glipiZIDE (GLUCOTROL XL) 5 MG 24 hr tabletIndications: Type 2 diabetes mellitus without complications TAKE ONE TABLET BY MOUTH EVERY DAY 30 tablet 11 06/25/20 24 Active metFORMIN (GLUCOPHAGE) 500 MG tabletIndications: Type 2 diabetes mellitus without complication, without long-term current use of insulin TAKE TWO TABLETS BY MOUTH EVERY MORNING AND EVERY EVENING 360 tablet 3 09/20/19 25 Active Additional Information Patient taking differently: 1,000 mg Oral 2 times daily with meals, (No instructions reported), Reported on 02/07/2025 tiotropium (SPIRIVA WITH HANDIHALER) 18 mcg inhalation capsule Inhale 18 mcg into the lungs daily as needed. Active fluticasone furoate-vilanteroL (BREO ELLIPTA) 200-25 mcg/dose inhaler Inhale 1 puff into the lungs daily as needed. Active atorvastatin (LIPITOR) 20 MG tabletIndications: Mixed hyperlipidemia TAKE ONE TABLET BY MOUTH DAILY 90 tablet 3 12/11/19 25 Active lisinopril (PRINIVIL,ZESTRIL) 10 MG tabletIndications: Benign essential hypertension Take 1 tablet (10 mg total) by mouth daily. 90 tablet 3 12/11/19 25 Active Active Problems Problem Noted Date Diagnosed Date Pulmonary nodules 04/01/2024 Overview (04/01/2024): See chest CT scan 03/01/24 Bronchiolitis 03/01/2024 Overview (04/01/2024): Chest CT/ done lungs- emphysema, scattered 2-3 mm nodules stable. One 4.3 nodule in RLL, stable. Chronic obstructive pulmonar y disease, unspecified COPD type 11/12/2022 History of arteriosclerotic cardiovascular disea se 09/26/2017 History of [place] (myocardial infarction) 09/26/2017 Mixed hyperlipidemia 09/26/2017 Tobacco use 09/26/2017 Type 2 diabetes mellitus without complications 0 09/26/2017 Coronary artery disease 08/15/1995 Encounters Date Type Department Care Team Description 02/07/2025 10:30 AM EDT Office Visit [facility] Internal Medicine [address] [facility] [place] [address] Shilo Garcia MD Type 2 diabetes mellitus with diabetic microalbuminuria, without long-term current use of insulin (Primary Dx); Benign essential hypertension; Coronary artery disease involving lime coronary artery of lime heart without angina pectoris; Chronic obstructive pulmonary disease, unspecified COPD type 02/05/2025 8:08 AM EDT - 02/05/2025 11:59 PM EDT Hospital Encounter [facility] [address] [place] [address] Shilo Garcia MD Discharge Disposition: Home or Self Care 01/20/2025 Telephone [facility] Internal Medicine [address] [facility] [place] [address] Shilo Garcia MD Results 01/15/2025 8:12 AM EDT - 01/15/2025 11:59 PM EDT Hospital Encounter [facility] [address] [place] [address] Shilo Garcia MD Discharge Disposition: Home or Self Care 01/04/2025 Telephone [facility] Internal Medicine [address] [facility] [place] [address] Shilo Garcia MD Blood pressures 01/04/2025 Telephone [facility] Internal Medicine [address] [facility] [place] [address] Shilo Garcia MD from Last 3 Months Immunizations Immunization Administration Dates Next Due COVID-19 (Pre) Pfizer Vaccine, mRNA, PF 10/17/2020,09/24/2020 COVID-19 (Pre-06/06) Aldis Vaccine, mRNA, dominga-sucrose, PF 11/06/2024 Influenza High-Dose Quadriva lent Preservative Free IM 04/27/2023,05/06/2022,04/17/2021 Influenza High-Dose Trivalen t Preservative Free IM 04/23/2024,04/19/2019,04/19/2018,04/26,05/03/2016,05/02/2015 Influenza Quadrivalent Adjuv anted Preservative Free IM 04/24/2020 Influenza Trivalent w/ Preservative IM 9,04/16/2017,05/02/2015 Pneumococcal conjugate PCV13 07/03/2015 Pneumococcal polysaccharide PPSV23 04/04/2018,,08/09/2011 RSV Vaccine (monovalent, adjuvanted) 04/23/2024 Tdap 03/19/2016 Family History Medical History Relation Comments Diabetes Mother Relation Status Comments Father Mother Social History Tobacco Use Types Packs/Day Years Used Date Smoking Tobacco: Every Day Cigarettes 0.8 47 Smokeless Tobacco: Never Tobacco Cessation:Ready to Q uit: Not Asked; Counseling Given: Not Answered Comments:3 cig a day since 2016 Alcohol Use Standard Drinks/Week Comments Yes 0 (1 standard drink = 0.6 oz pur e alcohol) 3-4 drinks a month, [facility] Education Answer Date Recorded Are you interested in more education? Not on nicolasa e 12/10/2022 Are you concerned about learning? Not on file 12/10/2022 No 12/10/2022 No 12/10/2022 Digital Access Answer Date Recorded No 01/10/2023 No 01/10/2023 Reliable internet access at home? Not on file 01/10/2023 Device with a working camera? Not on file Intimate Partner Violence Answer Date R ecorded Denied Basic Needs Not on file 05/21/2024 In the past 12 months have y ou been in a relationship with a person who hurts, threatens, or tries to control you? No 05/21/2024 Worried food would run out Not on file 05/21 In the past 12 months have y ou been in a relationship with a person who hurts, threatens, or tries to control you? No 05/21/2024 Sex and Gender Information Value Date Recorded Sex Assigned at Not on file Legal Sex Male 10:38 PM EDT Gender Identity Not on file Sexual Orientation Not on file Last Filed Vital Signs Vital Sign Reading Time Taken Comments Blood Pressure 125/58 02/07/2025 11:05 AM EDT Pulse 70 02/07/2025 11:05 AM EDT Temperature 36.4 C (97.6 F) 02/07/2025 11:05 AM EDT Respiratory Rate 24 11/08/2024 8:13 AM EDT Oxygen Saturation 96% 02/07/2025 11:05 AM EDT Inhaled Oxygen Concentration - - Weight 68.1 kg (150 lb 3.2 oz) 02/07/2025 11:05 AM EDT Height 172.7 cm (5' 7.99 ) 02/07/2025 11:05 AM E DT Body Mass Index 22.84 02/07/2025 11:05 AM EDT Plan of Treatment Upcoming Encounters Date Type Department Care Team (Late st Contact Info) Description 05/29/2025 8:30 AM EDT Office Visit [facility] Medicine [address] [place] [address] Shilo Garcia MD [address] [place] [address] [email or web address] Health Maintenance Due Date Last Done Comments COLOGUARD 1987 FIT TEST 1987 FOBT 1987 SIGMOIDOSCOPY 1987 VIRTUAL COLONOSCOPY 1987 ZOSTER VACCINES (1 of 2) 1992 COLONOSCOPY 07/09/2023 07/09/2020, 06/16, 02/08/2017, Additional history exists COLORECTAL CANCER SCREENING 07/09/2023 COVID-19 VACCINE ( season) 2025 11/06/2024, 05/04/2024, 05/16/2023, Additional history exists DEPRESSION SCREENING 05/21/2025 05/21/2024 HEMOGLOBIN A1C 08/07/2025 02/05/2025, 10/13, 05/07/2024, Additional history exists BLOOD PRESSURE 08/09/2025 02/07/2025 DIABETIC EYE EXAM 10/18/2025 10/18/2024, , 08/17/2022, Additional history exists LIPID PANEL 10/23/2025 10/23/2024, 03/0 12/2023, 10/20/2022, Additional history exists CREATININE LEVEL 01/15/2026 01/15/2025, 06/2025, 05/07/2024, Additional history exists POTASSIUM LEVEL 01/15/2026 01/15/2025, 10/13, 05/07/2024, Additional history exists Adult Td,Tdap Booster 03/19/2026 03/19/2016 PNEUMOCOCCAL VACCINES (50+ years) Completed 04/04/2018, 07/03/2015, 06/01/2014, Additional history exists RSV VACCINE Completed 04/23/2024 HEPATITIS A VACCINES Aged Out No long er eligible based on patient's age to complete this topic HIB VACCINES Aged Out No longer eligi ble based on patient's age to complete this topic MENINGOCOCCAL VACCINES (ACWY) Aged Out No longer eligible based on patient's age to complete this topic MENINGOCOCCAL VACCINES (B) Aged Out N o longer eligible based on patient's age to complete this topic Medical Devices Not on file Procedures Procedure Name Priority Date/Time Associated Diagnosis Comments GLUCOSE Routine 02/05/2025 8:08 AM EDT Type 2 diabetes mellitus without complication, without long-term current use of insulin HEMOGLOBIN A1C Routine 02/05/2025 8:08 AM EDT Type 2 diabetes mellitus without complication, without long-term current use of insulin BASIC METABOLIC PANEL Routine 01/15/2025 8:12 AM EDT Benign essential hypertension LIPID PANEL Routine 10/23/2024 8:01 AM EDT Type 2 diabetes mellitus with diabetic microalbuminuria, without long-term current use of insulin Coronary artery disease involving lime coronary artery of lime heart without angina pectoris DIABETES EYE EXAM FOR RESULT ENTRY ONLY Routine 10/18/2024 11:29 AM EST COLONOSCOPY FOR RESULT ENTRY ONLY Routine 07/09/2020 from Last 3 Months or Most Recently Relevant to Health Maintenance Results * (ABNORMAL) Hemoglobin A1c (02/05/2025 8:08 AM EDT) HEMOGLOBIN A1C 7.5(H) 4.3 - 5.8 % [facility] Blood 02/05/2025 8:08 AM EDT 02/05/2025 8:10 AM EDT us Shilo Garcia MD LAB BLOOD ORDERABLES Final Re sult [facility] [address] [place] [address] * (ABNORMAL) Glucose (02/05/2025 8:08 AM EDT) GLUCOSE 129(H) 70 - 99 mg/dL [facility] Blood 02/05/2025 8:08 AM EDT 02/05/2025 8:10 AM EDT us Shilo Garcia MD LAB BLOOD ORDERABLES Final Re sult Performing Organization Address [facility] Co de Phone Number [address] [address] * (ABNORMAL) Basic metabolic panel (01/15/2025 8:12 AM EDT) SODIUM 136 133 - 146 mmol/L [facility] CHLORIDE 102 96 - 108 mmol/L [facility] POTASSIUM 4.5 3.3 - 5.1 mmol/L [facility] CO2 25 21 - 35 mmol/L [facility] BUN 15 6 - 19 mg/dL [facility] CREATININE 0.80 0.5 - 1.5 mg/dL [facility] GLUCOSE 357(H) 70 - 99 mg/dL [facility] CALCIUM 8.9 8.4 - 10.3 mg/dL [facility] EGFR 88 >59 mL/min/1.7 3m2 [facility] Comment:Estimated glomerular filtration rate calculated using the CKD-EPI refit equation. ANION GAP 14 10 - 20 mmol/L [facility] Blood 01/15/2025 8:12 AM EDT 01/15/2025 8:14 AM EDT us Shiol Garcia MD LAB BLOOD ORDERABLES Final Re sult Performing Organization Address [facility] Co de Phone Number [address] [address] * (ABNORMAL) Lipid panel (10/23/2024 8:01 AM EDT) HDL 27 mg/dL [facility] Comment: Interpretation <40 mg/dL: Low HDL cholesterol (major risk factor for CHD) Greater than or equal to 60 mg/dL: High HDL cholesterol ( negative risk factor for CHD) HDL - cholesterol is affected by a number of factors, e.g. smoking, excerise, hormones, sex and age. CHOLESTEROL 80 0 - 240 mg/dL [facility] TRIGLYCERIDES 89 30 - 160 mg/dL [facility] LDL 35(L) 50 - 129 mg/dL [facility] Comment: LDL levels in terms of risk for coronary heart disease: <100 mg/dL: Optimal 100-129 mg/dL: Near or above optimal 130-159 mg/dL: Borderline high 160-189 mg/dL: High >190 mg/dL: Very High CARDIAC RISK RATIO 3.0(L) 3.4 - 5.0 C [facility] Blood 10/23/2024 8:01 AM EDT 10/23/2024 8:04 AM EDT Shilo Garcia MD LAB BLOOD ORDERABLES Final Re sult [facility] [address] [place] [address] * DIABETES EYE EXAM FOR RESULT ENTRY ONLY (10/18/2024 11:29 AM EST) Historical Provider HEALTH MAINTENANCE Final Result * COLONOSCOPY FOR RESULT ENTRY ONLY (07/09/2020) Colonoscopy 3 year recall Historical Provider HEALTH MAINTENANCE Final Result from Last 3 Months or Most Recently Relevant to Health Maintenance Insurance [employer] CROSS MEDEX SUPPLEMENT MEDICARE PART A & B Wi3 MEDEX SUPPLEMENT MEDICARE PART A & B Wi3 MEDEX SUPPLEMENT MEDICARE PART A & B Wi3 MEDEX SUPPLEMENT MEDICARE PART A & B Wi3 MEDEX SUPPLEMENT MEDICARE PART A & B [facility] MEDEX SUPPLEMENT MEDICARE PART A & B [employer] CROSS MEDEX SUPPLEMENT MEDICARE PART A & B [employer] CROSS MEDEX SUPPLEMENT MEDICARE PART A & B [employer] CROSS MEDEX SUPPLEMENT MEDICARE PART A & B Advance Directives For more information, please contact: [phone] (9AM - 5PM [facility], Tuesday-Tuesday) Documents on File Type Date Recorded Patient Skiver Operator Expl anation MOLST 09/29/2018 MOL Care Teams Cargo And Ramp Services Manager Relationship Specialty Start Date End Date Shilo Garcia MD [address] [place] [address] PCP - General 06/02/17 Ryan Yarbrough MD [address] [place] [id number] Gastroenterology 10/09/20 Shilo Garcia MD [address] [place] [address] [email or web address] Insurance Assigned Provider 11/19/23 Additional Source Comments The information contained in this document represents components of the legal health record. It is not the complete legal health record.[facility]
--- OUTSIDE RECORDS SUMMARY | 2025-03-15 11:45 | XMS_ITS | Clinical Summary ---
Author Organization [address] [facility] Address [address] [place] [address] Phone Care Team Providers Care Metal Roofing Mechanic Name Role Phone Physician, Pcp Unknown Primary Care Provider Nicolette vailable Encounters Date Type Department Care Team Description 12/28/2024 Lab Requisition [facility] - Main Lab [address] [facility] [place] [address] Kev Mir MD Personal history [...] Health Maintenance Due Date Last Done Comments Diabetes: Annual Foot Exam 1950 Diabetes: Annual Retina Eye Exam 1950 Zoster Vaccines (1 of 2) 1992 Falls Risk Assessment 07/04/2024 Medicare Annual Wellness Visit 07/04/2024 Social Influencers of Health Screening 07/04/2024 Depression Screening 08/15/2024 Diabetes: Blood Sugar Control Test (HGBA1C) 01/21/2025 Influenza Vaccine (#1) 2025 , 04/27/2023, 05/06/2022, Additional history exists Diabetes: Annual GFR (Glomerular Filtration Rate) 10/23/2025 10/23/2024, 05/07/2024, 10/18/2023, Additional history exists Hypertension/CHF/CAD Annual BMP Blood Test 10/23/2025 10/23/2024, 05/07/2024, 10/18/2023, Additional history exists Diabetes: Annual Urine Albumin-Creatinine Ratio (uACR) 11/08/2025 11/08/2024, 05/07/2024, 10/28/2023 DTaP,Tdap,and Td Vaccines (2 - Td or Tdap) 03/19/2026 03/19/2016 Cholesterol Screening (Lipid Panel) 10/23/2029 10/23/2024 Pneumococcal Vaccine: 50+ Years Completed 04/04/2018, 07/03/2015, 06/01/2014, Additional history exists RSV Immunization Adult Patients Completed 04/23/2024 COVID-19 Vaccine Completed 11/06/2024, , 05/16/2023, Additional history exists HIB Vaccines Aged Out No longer eligi [...] to complete this topic RSV Immunization Patients Under 20 months Aged Out No longer eligible based on patient's age to complete this topic Varicella Vaccines Aged Out No longer eligible based on patient's age to complete this topic Procedures Procedure Name Priority Date/Time Associated Diagnosis Comments AP OUTSIDE CONSULT Routine 12/25/2024 12 :00 AM EDT Personal history of malignant neoplasm of bladder Malignant neoplasm of trigone of bladder ([facility] V24, [facility] V28) from Last 3 Months Results * Anatomic pathology outside consult (12/25/2024 12:00 AM EDT) Final Diagnosis A. Urine, Voided, ([id number]): Negative for high grade urothelial carcinoma. 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 Results of UroVysion fluorescence in situ hybridization (FISH) testing: CEP3: Normal CEP7: Normal CEP17: Normal LSI 9p21: Normal Interpretation: Normal profile Controls stained appropriately. Note: The results are intended as a screening device and should be interpreted in association with other clinical and pathological findings. 01/11/2025 11:20 AM EDT [facility] Clinical Information History of bladder neoplasm (malignant) Z85.51 Malignant neoplasm of trigone of bladder C67.0 Urine Cytology/FISH (now) 01/11/2025 11:20 AM EDT [facility] Gross Description A. Urine, Voided, ([id number]): Received one ThinPrep slide for cytology and one ThinPrep slide for UroVysion FISH 01/11/2025 11:20 AM EDT [facility] Disclaimer Unless otherwise specified, all tissue is 10% NB formalin fixed and paraffin embedded. Technical pathology services provided by [facility] at [address] [place] [address] [address], [place] [address] (CLIA #[id number]/Mary Singh MD, Grease Packer) 01/11/2025 11:20 AM EDT [facility] Tissue Urine specimen from urethra / Unknown 12/25/2024 12/28/2024 2:22 PM EDT Kev Mir MD LAB PATHOLOGY ORDERABLES Final Result [facility] [address] [place] [address], from Last 3 Months Insurance MEDICARE [facility] Care Teams Metal Roofing Mechanic Relationship Specialty Start Date End Date Physician, Pcp Unknown PCP - General 12/28/24
--- NOTE | 2025-03-15 12:21 | HO.NEPHOV_ITS ---
Vital Signs 03/15/25 12:26 Height 5 ft 10 in Weight 145 lb 6 oz BMI 20.9 BP 104/50 L Blood Pressure Location Lt brachial Position Sitting Pulse 68 Pulse Source Pulse Oximeter Pulse Oximetry (%) 97 Oxygen Delivery Method Room Air Intake Visit Reasons: ENP: Microalbuminuria/ Conf Stock Patcher Required: No Accompanied by: Self / Same As Patient Allergies No Known Allergies Allergy (Verified 03/15/25 12:25) HPI Comments Details: I had the privilege of seeing Blue in consultation for proteinuria. He is 84 years of age with H/O long standing hypertension and DM . He is on ACEI as well as SGLT2 i . His last A1c was 7.5. He denies nausea, vomiting, diarrhea, shortness of breath, PND, orthopnea, dizziness, epistaxis, photosensitivity, new skin rashes, new bone or back pain, excess NSAID intake, H/O malignancies, carotid stenosis, CVA, CHF or PAD. He had CAD and PCI. He has no urinary symptoms, sinusitis, epistaxis, edema, M/S hematuria or hearing impairment. His serum creatinine is normal but has been having proteinuria. 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) Smoker History of bladder cancer (~1996) Surgical History History of heart artery stent History of cystoscopy History of colonoscopy History of cholecystectomy History of left ankle joint replacement History of nasal surgery Social History Are you a primary health care social worker to a significant other at home: No Do you presently have visiting nurse or other home services: No Alcohol intake: never Patient Tobacco Use Status: Current everyday Tobacco user (3 cigarettes a day ) Tobacco use type: Cigarette Cigarettes Per Day: 4 Years Smoked: 40 Review of Systems Const All systems reviewed & are unremarkable except as noted in HPI and below Physical Exam Vital Signs: Last Vital Signs Pulse 68 03/15/25 12:26 BP 104/50 L 03/15/25 12:26 Pulse Ox 97 03/15/25 12:26 Oxygen Delivery Method Room Air 03/15/25 12:26 BMI result Body Mass Index 20.9 Const General: comfortable and no acute distress Orientation/consciousness: patient oriented x3 HEENT Head: Yes normocephalic Mouth: Normal oral and palatal mucosa present Eyes EOM: EOMs intact bilaterally Neck Neck: Yes supple Resp Auscultation: clear to auscultation bilaterally Cardio Jugular venous distension: no JVD Rate: regular rate GI Palpation (GI): Soft to palpation Auscultation: normal bowel sounds General: Yes no CVA tenderness Back/Spine/Pelvis Back: no CVA tenderness Skin General skin exam: no rashes or lesions noted Neuro General: patient oriented x3 and moves all extremities Extrem General: Yes no pedal edema Assessment & Plan Assessment & Plan (1) Proteinuria: Code(s): R80.9 - Proteinuria, unspecified Category: Medical Qualifiers: Proteinuria type: other Qualified Code(s): R80.8 - Other proteinuria (2) Hypertension: Code(s): I10 - Essential (primary) hypertension Category: Medical Qualifiers: Hypertension type: primary hypertension Qualified Code(s): I10 - Essential (primary) hypertension Plan 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 He is on ACEI & SGLT2 i. I increased his Jardiance to 25 mg daily. He may be having ericka vascular disease. I have ordered detailed work up including imaging studies as well as blood work and urine studies. I shall consider increase his ACEI if his serum creatinine tolerates it. He should maintain good hydration and avoid NSAID's. Further management is pending evolving data. Answered all questions and F/U was given Orders: Orders US renal BI 1 Month R80.9 - Proteinuria, unspecified Creatinine 1 Month I10 - Essential (primary) hypertension, R80.9 - Proteinuria, unspecified Electrolytes 1 Month I10 - Essential (primary) hypertension, R80.9 - Proteinuria, unspecified US renal doppler 1 Month R80.9 - Proteinuria, unspecified Immunofixation Pnl, Serum 1 Month I10 - Essential (primary) hypertension, R80.9 - Proteinuria, unspecified Immunofixation, Random Urine 1 Month I10 - Essential (primary) hypertension, R80.9 - Proteinuria, unspecified Blood Urea Nitrogen 1 Month I10 - Essential (primary) hypertension, R80.9 - Proteinuria, unspecified Calcium 1 Month I10 - Essential (primary) hypertension, R80.9 - Proteinuria, unspecified Coding Level of Care Code New Pt Level 4 (75439) Diagnoses Other proteinuria R80.8 Proteinuria type: other Primary hypertension I10 Hypertension type: primary hypertension
[2025-03-15 12:26] VITALS: BP 104/50; PULSE 68; O2SAT 97; BMI 20.9
== END 2025-03-15 12:44 | disposition home or self-care (01) ==
LOC: HO.HKA 11:43
PROVIDERS: PCP Internal Medicine; Referring Provider Internal Medicine; Visit Provider Internal Medicine Nephrology
DX: R80.8 Other proteinuria (principal); I10 Essential (primary) hypertension
CPT/HCPCS: 99204

== ENCOUNTER → 2025-03-15 11:42 | Outpatient (BNVA) | payer MEDICARE, SELFPAY | PROVIDERS: PCP Internal Medicine; Referring Provider Internal Medicine; Visit Provider Internal Medicine Nephrology | DX: R80.8 Other proteinuria (principal); I10 Essential (primary) hypertension | CPT/HCPCS: 99202 ==

== ENCOUNTER 2025-05-15 09:57 | Outpatient (AMB) | payer MEDICARE, SELFPAY ==
--- OUTSIDE RECORDS SUMMARY | 2024-08-17 04:30 | XMS_ITS ---
Author Organization [facility] Address [address] [place] [address] Care Team Providers Care Biscuit Machine Operator Name Role Phone Shilo Garcia MD Primary Care Provider Ryan Oliver [phone] REASON FOR VISIT screening,hx polyps Encounters Encounter Location Date Provider Diagnosis [facility] [address] [place] [phone] 08/17/2024 Ryan Yarbrough Plan Of Treatment No Information Progress Notes * ANASTACIO URIASDOB:[birth year] (84 yo M)Acc No.[id number]:08/17/2024 COLON WITH MAC Patient: ANASTACIO KC Provider: Graeme Yarbrough MD :1940 A ge:83 Y S ex:Male Date:08/17/2024 Address:[address] [place], [place] [address] Pcp:Shilo Garcia MD Subjective: * Chief Complaints: * 1 . Screening,hx polyps. * Medical History: Objective: * Vitals: Assessment: Plan: * Treatment: * * The named appointment provid er may or may not be the originator of this progress note, and it is not deemed complete until electronically signed by the appointment provider. Sign off status: Pending * Provider: Graeme Yarbrough MD Date: 0 08/17/2024 Generated for Printi ng/Faajitg/eTransmitting on: 11:07 AM EDT
--- OUTSIDE RECORDS SUMMARY | 2024-11-09 04:30 | XMS_ITS ---
Author Organization [facility] Address [address] [place] [address] Care Team Providers Care Gas Distribution Supervisor Name Role Phone Shilo Garcia MD Primary Care Provider Ryan Oliver [phone] REASON FOR VISIT screening,hx polyps Encounters Encounter Location Date Provider Diagnosis [facility] Outpatient [address] [place] [phone] 11/09/2024 Ryan Yarbrough Plan Of Treatment No Information Progress Notes * ANASTACIO URIASDOB:[birth year] (84 yo M)Acc No.[id number]:11/09/2024 COLON WITH MAC Patient: ANASTACIO KC Provider: Graeme Yarbrough MD :1940 A ge:84 Y S ex:Male Date:11/09/2024 Address:[address] [place], [place] [address] [facility] Pcp:Shilo Garcia MD Subjective: * Chief Complaints: [...] 0 11/09/2024 Generated for Printi ng/Faajitg/eTransmitting on: 1 11:06 AM EDT
--- NOTE | 2025-05-15 10:11 | HO.NEPHOV ---
Vital Signs 05/15/25 10:16 Height 5 ft 10 in Weight 140 lb 6 oz BMI 20.1 BP 126/50 L Blood Pressure Location Rt brachial Position Sitting Pulse 77 Pulse Source Pulse Oximeter Pulse Oximetry (%) 96 Oxygen Delivery Method Room Air Intake Visit Reasons: 2mon f/u w/labs-Conf Teaching Supervisor Required: No Accompanied by: Self / Same As Patient Allergies No Known Allergies Allergy (Verified 05/15/25 10:16) HPI Comments Details: Blue was seen in follow up for proteinuria. He is 84 years of age with H/O long standing hypertension and DM . He is on ACEI as well as SGLT2 i . His last A1c was 7.5. He denies nausea, vomiting, diarrhea, shortness of breath, PND, orthopnea, dizziness, epistaxis, photosensitivity, new skin rashes, new bone or back pain, excess NSAID intake, H/O malignancies, carotid stenosis, CVA, CHF or PAD. He had CAD and PCI. He has no urinary symptoms, sinusitis, epistaxis, edema, M/S hematuria or hearing impairment. His serum creatinine is normal but has been having proteinuria. His Jardiance was increased to 25 mg and he feels his frequency of micturition has increased since. 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) Smoker History of bladder cancer (~1996) Surgical History History of heart artery stent History of cystoscopy History of colonoscopy History of cholecystectomy History of left ankle joint replacement History of nasal surgery Social History Are you a primary respiratory care specialist to a significant other at home: No Do you presently have visiting nurse or other home services: No Alcohol intake: never Patient Tobacco Use Status: Current everyday Tobacco user (3 cigarettes a day ) Tobacco use type: Cigarette Cigarettes Per Day: 4 Years Smoked: 40 Review of Systems Const All systems reviewed & are unremarkable except as noted in HPI and below Physical Exam Const General: comfortable and no acute distress Orientation/consciousness: patient oriented x3 HEENT Head: Yes normocephalic Mouth: Normal oral and palatal mucosa present Eyes EOM: EOMs intact bilaterally Neck Neck: Yes supple Resp Auscultation: clear to auscultation bilaterally Cardio Jugular venous distension: no JVD Rate: regular rate GI Palpation (GI): Soft to palpation Auscultation: normal bowel sounds General: Yes no CVA tenderness Back/Spine/Pelvis Back: no CVA tenderness Skin General skin exam: no rashes or lesions noted Neuro General: patient oriented x3 and moves all extremities Extrem General: Yes no pedal edema Assessment & Plan Assessment & Plan (1) Hypertension: Code(s): I10 - Essential (primary) hypertension Category: Medical Qualifiers: Hypertension type: primary hypertension Qualified Code(s): I10 - Essential (primary) hypertension (2) Proteinuria: Code(s): R80.9 - Proteinuria, unspecified Category: Medical Qualifiers: Proteinuria type: other Qualified Code(s): R80.8 - Other proteinuria Plan 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 He is on ACEI & SGLT2 i. I reduced his Jardiance by 50 % to see his frequency of micturiton goes away. He also has an appointment with his Urologist next month . His renal imaging studies are pending. I shall consider increase his ACEI if his serum creatinine tolerates it. He should maintain good hydration and avoid NSAID's. Further management is pending evolving data. Answered all questions and F/U was given Orders: Orders Protein Creatinine Ratio, Ur 1 Month I10 - Essential (primary) hypertension, R80.8 - Other proteinuria Hemoglobin A1c 1 Month I10 - Essential (primary) hypertension, R80.8 - Other proteinuria Creatinine 1 Month I10 - Essential (primary) hypertension, R80.8 - Other proteinuria Blood Urea Nitrogen 1 Month I10 - Essential (primary) hypertension, R80.8 - Other proteinuria Electrolytes 1 Month I10 - Essential (primary) hypertension, R80.8 - Other proteinuria Coding Level of Care Code Est Pt Level 4 (18178) Diagnoses Primary hypertension I10 Hypertension type: primary hypertension Other proteinuria R80.8 Proteinuria type: other
[2025-05-15 10:16] VITALS: BP 126/50; PULSE 77; O2SAT 96; BMI 20.1
--- OUTSIDE RECORDS SUMMARY | 2025-05-15 11:06 | XMS_ITS | Clinical Summary ---
Author Organization [address] [facility] Address [address] [place] [address] Phone Care Team Providers Care Signal Maintenance Technician Name Role Phone Physician, Pcp Unknown Primary Care Provider Nicolette vailable Social History Tobacco Use Types Packs/Day Years [...] age to complete this topic Insurance MEDICARE [facility] Member Subscriber Plan / Payer (Ef fective 2019-Present) Name:NICOJURGEN ANASTACIO Relation to Subscriber:Self Name:Anastacio Bueno Payer ID:[id number] Type:Not on file Address: [address] [place] [id number] Care Teams Signal Maintenance Technician Relationship Specialty Start Date End Date Physician, Pcp Unknown PCP - General 12/28/24
--- OUTSIDE RECORDS SUMMARY | 2025-05-15 11:06 | XMS_ITS | Encounter Summary ---
Author Organization [facility] Address [address] [place] [address] Care Team Providers Care Wet Process Operator Name Role Phone Physician, Pcp Unknown Primary Care Provider Nicolette vailable Encounter Details Date Type Department Care Team (Late st Contact Info) Description 12/28/2024 Lab Requisition [facility] - Main Lab [address] [place] [address] Kev Mir MD [address] [facility] [address] [place] [address] Personal history of malignant neoplasm [...] trigone of bladder (CMS/HCC V24, CMS/HCC V28) documented in this encounter Results * Anatomic pathology outside consult (12/25/2024 12:00 AM EDT) Final Diagnosis A. Urine, Voided, ([id number]): Negative for high grade urothelial carcinoma. Degenerated [...] and pathological findings. 01/11/2025 11:20 AM EDT [facility] Clinical Information History of bladder neoplasm (malignant) Z85.51 Malignant neoplasm of trigone of bladder C67.0 Urine Cytology/FISH (now) 01/11/2025 11:20 AM EDT [facility] Gross Description A. Urine, Voided, ([id number]): Received one ThinPrep slide for cytology and one ThinPrep slide for UroVysion FISH 01/11/2025 11:20 AM EDT [facility] Disclaimer Unless otherwise specified, all tissue is 10% NB formalin fixed and paraffin embedded. Technical pathology services provided by [facility] [address] [place] [address] (CLIA #[id number]/Mary Singh MD, Legend Maker) 01/11/2025 11:20 AM EDT [facility] Tissue Urine specimen from urethra / Unknown 12/25/2024 12/28/2024 2:22 PM EDT us Kev Mir MD LAB PATHOLOGY ORDERABLES Final Result [facility] [address] [place] [address], documented in this encounter Visit Diagnoses Diagnosis Personal history of malignant neoplasm of bladder Malignant neoplasm of trigone of bladder (CMS/HCC V24, CMS/HCC V28) Malignant neoplasm of trigone of urinary bladder documented in this encounter Care Teams Wet Process Operator Relationship Specialty Start Date End Date Physician, Pcp Unknown PCP - General 12/28/24 documented as of this encounter
--- OUTSIDE RECORDS SUMMARY | 2025-05-15 11:06 | XMS_ITS | Clinical Summary ---
Author Organization [facility] Address [address] [address] Phone Care Team Providers Care Art Display Maker Name Role Phone Shilo Garcia MD Primary Care Provider [phone] Ryan Yarbrough MD Unavailable [phone] Shilo Garcia MD Unavailable [phone] Allergies No known active allergies Medications aspirin 81 MG EC tablet Take 81 mg by mouth daily. Active pancrelipase, dhzabu-cuumrtrw-fk ylase, (CREON) 24,000-76,000 -120,000 unit CpDR Take [...] arteriosclerotic cardiovascular disea se 09/26/2017 History of NV (myocardial infarction) 09/26/2017 Mixed hyperlipidemia 09/26/2017 Tobacco use 09/26/2017 Type 2 diabetes mellitus without complications 0 09/26/2017 Coronary artery disease 08/15/1995 Encounters Date Type Department Care Team Description 05/07/2025 8:09 AM EDT - 05/07/2025 11:59 PM EDT Hospital Encounter [facility] Laboratory [address] [place] [address] Shilo Garcia MD Discharge Disposition: Home or Self Care from Last 3 Months Immunizations Immunization Administration Dates Next Due COVID-19 (Pre-06/06) Pfizer Vaccine, mRNA, PF 10/17/2020,09/24/2020 COVID-19 (Pre-06/06) Pfizer Vaccine, mRNA, dominga-sucrose, PF 11/06/2024 INFLUENZA, SPLIT VIRUS, TRIV ALENT W/ PRESERVATIVE IM 04/15/2019,04/16/2017,05/02/2015 Influenza High-Dose Quadriva lent Preservative Free IM 04/27/2023,05/06/2022,04/17/2021 Influenza High-Dose Trivalen t Preservative Free IM 04/23/2024,04/19/2019,04/19/2018,04/26,05/03/2016,05/02/2015 Influenza Quadrivalent Adjuv anted Preservative Free IM 04/24/2020 Pneumococcal conjugate PCV13 07/03/2015 Pneumococcal polysaccharide PPSV23 [...] pur e alcohol) 3-4 drinks a month, liqour Education Answer Date Recorded Are you interested [...] Description 05/29/2025 8:30 AM EDT Office Visit [facility] Internal Medicine [address] [place] [address] Shilo Garcia MD [address] [place] [address] [email or web address] Health Maintenance Due Date Last Done Comments COLOGUARD 1987 FIT TEST 1987 FOBT 1987 SIGMOIDOSCOPY 1987 VIRTUAL COLONOSCOPY 1987 ZOSTER VACCINES (1 of 2) 1992 COLONOSCOPY 07/09/2023 07/09/2020, 06/16, 02/08/2017, Additional history exists COLORECTAL CANCER SCREENING 07/09/2023 INFLUENZA VACCINE (#1) 2025 , 04/27/2023, 04/27/2023, Additional history exists COVID-19 VACCINE ( season) 2025 11/06/2024, 05/04/2024, 05/16/2023, Additional history exists DEPRESSION SCREENING 05/21/2025 05/21/2024 HEMOGLOBIN A1C 08/07/2025 02/05/2025, 0308/2024, 05/07/2024, Additional history exists BLOOD PRESSURE 08/09/2025 02/07/2025 DIABETIC EYE EXAM 10/18/2025 10/18/2024, , 08/17/2022, Additional history exists Adult Td,Tdap Booster 03/19/2026 03/19/2016 CREATININE LEVEL 05/07/2026 05/07/2025, 10/2024, 10/23/2024, Additional history exists LIPID PANEL 05/07/2026 05/07/2025, 10/13, 10/18/2023, Additional history exists POTASSIUM LEVEL 05/07/2026 05/07/2025, 06/0 10/2024, 10/23/2024, Additional history exists PNEUMOCOCCAL VACCINES (50+ years) Completed 04/04/2018, 07/03/2015, [...] Procedure Name Priority Date/Time Associated Diagnosis Comments COMPREHENSIVE METABOLIC PANEL Routine 05/07/2025 8:10 AM EDT Benign essential hypertension Type 2 diabetes mellitus without complication, without long-term current use of insulin CBC AND DIFFERENTIAL Routine 05/07/2025 8:10 AM EDT Benign essential hypertension Type 2 diabetes mellitus without complication, without long-term current use of insulin LIPID PANEL Routine 05/07/2025 8:10 AM EDT Type 2 diabetes mellitus without complication, without long-term current use of insulin TSH WITH REFLEX Routine 05/07/2025 8:10 AM EDT Benign essential hypertension HEMOGLOBIN A1C Routine 02/05/2025 8:08 AM EDT Type 2 diabetes mellitus without complication, without long-term current use of insulin HM DIABETES EYE EXAM FOR RESULT ENTRY ONLY Routine 10/18/2024 11:29 AM EST COLONOSCOPY FOR RESULT ENTRY ONLY Routine 07/09/2020 from Last 3 Months or Most Recently Relevant to Health Maintenance Results * (ABNORMAL) Comprehensive metabolic panel (05/07/2025 8:10 AM EDT) SODIUM 140 133 - 146 mmol/L [facility] POTASSIUM 4.4 3.3 - 5.1 mmol/L [facility] CHLORIDE 103 96 - 108 mmol/L [facility] CO2 24 21 - 35 mmol/L [facility] BUN 13 6 - 19 mg/dL [facility] CREATININE 0.70 0.5 - 1.5 mg/dL [facility] GLUCOSE 154(H) 70 - 99 mg/dL [facility] ALBUMIN 4.1 3.9 - 4.8 g/dL [facility] TOTAL PROTEIN 6.9 6.5 - 8.0 g/dL [facility] CALCIUM 9.1 8.4 - 10.3 mg/dL [facility] ALKALINE PHOSPHATASE 73 39 - 117 U/L [facility] TOTAL BILIRUBIN 0.5 0.0 - 1.2 mg/dL [facility] AST 27 0 - 37 U/L [facility] ALT 25 0 - 40 U/L [facility] GLOBULIN 2.8 1 - 4.8 g/dL [facility] EGFR 92 >59 mL/min/1.7 3m2 [facility] Comment:Estimated glomerular filtration rate calculated using the CKD-EPI refit equation. ANION GAP 17 10 - 20 mmol/L [facility] Blood 05/07/2025 8:10 AM EDT 05/07/2025 8:11 AM EDT us Shilo Garcia MD LAB BLOOD ORDERABLES Final Re sult [facility] [address] [place] [address] * TSH with reflex (05/07/2025 8:10 AM EDT) TSH 1.78 0.27 - 4.20 uIU/mL [facility] Blood 05/07/2025 8:10 AM EDT 05/07/2025 8:11 AM EDT us Shilo Garcia MD LAB BLOOD ORDERABLES Final Re sult [facility] [address] [place], [place] [id number] * (ABNORMAL) CBC and differential (05/07/2025 8:10 AM EDT) WBC 8.05 4.00 - 11.00 K/uL [facility] RBC 4.47(L) 4.50 - 5.90 M/uL [facility] HGB 14.1 13.5 - 17.5 g/dL [facility] HCT 44.1 41.0 - 53.0 % [facility] PLT 219 150 - 450 K/uL [facility] MCV 98.7 80.0 - 100.0 fL [facility] MCH 31.5(H) 27.0 - 31.0 pg [facility] MCHC 32.0 32.0 - 36.0 g/dL [facility] RDW 12.6 11.5 - 14.5 % [facility] MPV 10.4 8.4 - 12.0 fL [facility] NRBC 0.00 0.00 /100 WBCs [facility] ABSOLUTE NRBC 0.00 0.00 K/uL [facility] DIFF METHOD Auto [facility] NEUTS 56.1 48.0 - 76.0 % [facility] LYMPHS 30.7 18.0 - 41.0 % [facility] MONOS 7.5 4.0 - 11.0 % [facility] EOS 4.2 0.0 - 5.0 % [facility] BASOS 1.0 0.0 - 1.5 % [facility] Granulocytes, immature (%) 0.5 0.0 - 0.9 % [facility] ABSOLUTE NEUTS 4.52 1.92 - 7.60 K/uL [facility] ABSOLUTE LYMPHS 2.47 0.72 - 4.10 K/uL [facility] ABSOLUTE MONOS 0.60 0.16 - 1.10 K/uL [facility] ABSOLUTE EOS 0.34 0.00 - 0.50 K/uL [facility] ABSOLUTE BASOS 0.08 0.00 - 0.15 K/uL [facility] Granulocytes, immature 0.04 0.00 - 0.09 K/uL [facility] Blood 05/07/2025 8:10 AM EDT 05/07/2025 8:11 AM EDT us Shilo Garcia MD LAB BLOOD ORDERABLES Final Re sult Performing Organization Address City/[facility]/ZIP Co de Phone Number [address] [address] * (ABNORMAL) Lipid panel (05/07/2025 8:10 AM EDT) HDL 32 mg/dL [facility] Comment: Interpretation <40 mg/dL: Low HDL cholesterol (major risk factor for CHD) Greater than or equal to 60 mg/dL: High HDL cholesterol ( negative risk factor for CHD) HDL - cholesterol is affected by a number of factors, e.g. smoking, excerise, hormones, sex and age. CHOLESTEROL 71 0 - 240 mg/dL [facility] TRIGLYCERIDES 109 30 - 160 mg/dL [facility] LDL 17(L) 50 - 129 mg/dL [facility] Comment: LDL levels in terms of risk for coronary heart disease: <100 mg/dL: Optimal 100-129 mg/dL: Near or above optimal 130-159 mg/dL: Borderline high 160-189 mg/dL: High >190 mg/dL: Very High CARDIAC RISK RATIO 2.2(L) 3.4 - 5.0 C [facility] Blood 05/07/2025 8:10 AM EDT 05/07/2025 8:11 AM EDT us Shilo Garcia MD LAB BLOOD ORDERABLES Final Re sult Performing Organization Address City/[facility]/ZIP Co de Phone Number [address] [address] * (ABNORMAL) Hemoglobin A1c (02/05/2025 8:08 AM EDT) HEMOGLOBIN A1C 7.5(H) 4.3 - 5.8 % [facility] Blood 02/05/2025 8:08 AM EDT 02/05/2025 8:10 AM EDT Shilo Garcia MD LAB BLOOD ORDERABLES Final Re sult [facility] [address] [place] [address] * DIABETES EYE EXAM FOR RESULT ENTRY ONLY (10/18/2024 11:29 AM EST) Historical Provider HEALTH MAINTENANCE Final Result * COLONOSCOPY FOR RESULT ENTRY ONLY (07/09/2020) Colonoscopy 3 year recall Historical Provider HEALTH MAINTENANCE Final Result from Last 3 Months or Most Recently Relevant to Health Maintenance Insurance [place] MD MEDEX SUPPLEMENT MEDICARE PART A & B Shell[employer] CROSS MEDEX SUPPLEMENT MEDICARE PART A & B BLUE CROSS MEDEX SUPPLEMENT MEDICARE PART A & B [place] [employer] MEDEX SUPPLEMENT MEDICARE PART A & B [place] MEDEX SUPPLEMENT MEDICARE PART A & B [place] [employer] MEDEX SUPPLEMENT MEDICARE PART A & B [place] [employer] [place] MEDEX SUPPLEMENT MEDICARE PART A & B [place] [employer] [place] MEDEX SUPPLEMENT MEDICARE PART A & B [place] [employer] MD MEDEX SUPPLEMENT MEDICARE PART A & B Advance Directives For more information, please contact: [phone] (9AM - 5PM [facility], Tuesday-Tuesday) Documents on File Type Date Recorded Patient Manager Bench Expl anation [facility] 09/29/2018 [facility] Care Teams Art Display Maker Relationship Specialty Start Date End Date Shilo Garcia MD [address] [place] [address] [email or web address] PCP - General 06/02/17 Ryan Yarbrough MD [address] [place] [address] Drive [address] [place] [id number] Gastroenterology 10/09/20 Shilo Garcia MD [address] [place] [address] [email or web address] Insurance Assigned Provider 11/19/23 Additional Source Comments The information contained in this document represents components of the legal health record. It is not the complete legal health record.[facility]
--- OUTSIDE RECORDS SUMMARY | 2025-05-15 11:06 | XMS_ITS | Encounter Summary ---
[facility] [address] Address [address] [place] [address] Care Team Providers Care Electrical And Instrument Technician Name Role Phone Physician, Pcp Unknown Primary Care Provider Nicolette vailable Encounter Details Date Type Department Care Team (Late st Contact Info) Description 07/04/2024 Lab Requisition [facility] - Main Lab [address] [facility] [place] [address] Kev Mir MD [address] [facility] [address] [place] [address] Malignant neoplasm of posterior wall [...] clinical and pathological findings. 07/13/2024 8:53 AM [facility] Clinical Information [id number] Cytology/FISH 07/13/2024 8:53 AM [facility] Gross Description A. Urine, Voided, : [id number] Received 1 TP (CYTO) 1 TP (FISH) 07/13/2024 8:53 AM [facility] Disclaimer Unless otherwise specified, all tissue is 10% NB formalin fixed and paraffin embedded. 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
--- OUTSIDE RECORDS SUMMARY | 2025-05-15 11:07 | XMS_ITS | Patient Health Record ---
Author Organization [facility] Address [address] [place] [address] Care Team Providers Care Stock Unloader Name Role Phone Shilo Garcia MD Primary Care Provider Ryan Oliver Unavailable [phone] Allergies No Known Allergies Reason For Referral No Information Medications Medication SIG (Take, Route, Frequency, Duration) Notes Start Date End Date Status Nadolol 10 mg 1 tablet Orally PRN Not-Taking glipiZIDE ER 5 MG 1 tablet with breakfast Orally Once a day Active Creon 80079 UNIT 2 Orally with each meal Only taking 2 QD with breakfast Active Lisinopril 2.5 MG Orally once a day Active Trelegy Ellipta 100-62.5-25 MCG/INH 1 puff Inhalation Once a day Active Atorvastatin Calcium 20 MG 1 tablet Orally Once a day for 30 day(s) Active Aspir-Low 81 MG 1 tablet Orally Once a day Active Creon 06727-03456 UNIT TAKE TWO CAPSULES BY MOUTH WITH [...] Problem Status W/U Status Risk Notes Problem 084364145 Encounter for screening for malignant neoplasm of colon (Z12.11) Active confirmed Problem 441064992 History of adenomatous polyp of colon (Z86.010) Active confirmed Problem Screening for malignant neoplasm of rectum (226227951) Encounter for screening for malignant neoplasm of rectum (Z12.12) Active confirmed Problem 590513001 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 Problem 06745177 Pancreatic insufficiency (K86.89) Active confirmed Encounters Encounter Location Date Provider Diagnosis [facility] [address] [place] [phone] 07/24/2024 Ryan Yarbrough [facility] [address] [place] [phone] 10/12/2024 Ryan Yarbrough Plan Of Treatment Pending [...] Date MEDICARE OF [place] [address] [place] [address] [phone] [id number] NICODEYANIRAANASTACIO Jaquez Self - patient is the insured MEDEX ATTN CLAIMS [address] [place] [address] [phone] [id number] NICODEYANIRAANASTACIO Jaquez Self - patient is the insured Medical [...] Hyperlipidemia Hypertension Coronary artery disease with previous DE approx 1991 with1 stent placed-at [facility] Transitional cell cancer of the bladder [...]
== END 2025-05-15 10:36 | disposition home or self-care (01) ==
LOC: HO.HKA 09:58
PROVIDERS: PCP Internal Medicine; Visit Provider Internal Medicine Nephrology
DX: I10 Essential (primary) hypertension (principal); R80.8 Other proteinuria
CPT/HCPCS: 99214

== ENCOUNTER → 2025-05-15 09:57 | Outpatient (BNVA) | payer MEDICARE, SELFPAY | PROVIDERS: PCP Internal Medicine; Visit Provider Internal Medicine Nephrology | DX: I10 Essential (primary) hypertension (principal); R80.8 Other proteinuria | CPT/HCPCS: 99212 ==

== ENCOUNTER 2025-05-16 08:14 | Outpatient (REF) | payer MEDICARE, SELFPAY ==
--- NOTE | ~2025-05-16 | US_ITS ---
CLINICAL HISTORY: R80.9 - Proteinuria, unspecified US renal with Color Doppler Comparison: None Findings: Right kidney normal size and echotexture, 10.3 cm length. No nephrolithiasis. No hydronephrosis. Normal color flow. Renal cortical cysts as follows: Lower pole 2.1 x 1.4 x 1.9 cm, lower pole 2.1 x 1.8 x 2.0 cm. Complex cyst midpole measuring 2.8 x 2.4 x 2.2 cm. Left kidney normal size and echotexture, 10.3 cm length. No nephrolithiasis. No hydronephrosis. Normal color flow. Complex cyst midpole measuring 2.0 x 2.1 x 1.9 cm. Impression: 1. Kidneys normal-size and position with normal cortical width and echotexture. No nephrolithiasis or hydronephrosis. 2. Bilateral slightly complex renal cysts. US renal duplex ultrasound Comparison: None Technique: Real time duplex ultrasound imaging was performed by the package collector. Multiple quality control representative static images were saved for review. Findings: Aorta: Normal waveform, 72.7 cm/s. Right kidney: Normal size and echotexture, 10.3 cm length. Main renal artery peak systolic velocities: Proximal: 152.0 cm/s Mid: 136.0 cm/s Distal: 72.1 cm/s Segmental resistive index: Upper pole: 0.81, midpole 0.78, lower pole 0.83. RAR: 2.1 Left kidney: Normal size and echotexture, 10.3 cm length. Main renal artery peak systolic velocities: Proximal: 169.0 cm/s Mid: 126.0 cm/s Distal: 149.0 cm/s Segmental resistive index: Upper pole: 0.79, midpole 0.84 and lower pole 0.67 RAR: 2.3 Bilateral renal veins are patent Impression: 1. Renal artery findings showed normal peak systolic velocities. 2. Renal parenchymal findings: Bilateral kidneys demonstrated RI value of greater than 0.8. This document has been electronically signed by: Enoc Denny MD on 05/16/2025 16:01:02
--- NOTE | ~2025-05-16 | US_ITS ---
CLINICAL HISTORY: R80.9 - Proteinuria, unspecified US renal with Color Doppler Comparison: None Findings: Right kidney normal size and echotexture, 10.3 cm length. No nephrolithiasis. No hydronephrosis. Normal color flow. Renal cortical cysts as follows: Lower pole 2.1 x 1.4 x 1.9 cm, lower pole 2.1 x 1.8 x 2.0 cm. Complex cyst midpole measuring 2.8 x 2.4 x 2.2 cm. Left kidney normal size and echotexture, 10.3 cm length. No nephrolithiasis. No hydronephrosis. Normal color flow. Complex cyst midpole measuring 2.0 x 2.1 x 1.9 cm. Impression: 1. Kidneys normal-size and position with normal cortical width and echotexture. No nephrolithiasis or hydronephrosis. 2. Bilateral slightly complex renal cysts. US renal duplex ultrasound Comparison: None Technique: Real time duplex ultrasound imaging was performed by the box spinner. Multiple sales representative malt liquors static images were saved for review. Findings: Aorta: Normal waveform, 72.7 cm/s. Right kidney: Normal size and echotexture, 10.3 cm length. Main renal artery peak systolic velocities: Proximal: 152.0 cm/s Mid: 136.0 cm/s Distal: 72.1 cm/s Segmental resistive index: Upper pole: 0.81, midpole 0.78, lower pole 0.83. RAR: 2.1 Left kidney: Normal size and echotexture, 10.3 cm length. Main renal artery peak systolic velocities: Proximal: 169.0 cm/s Mid: 126.0 cm/s Distal: 149.0 cm/s Segmental resistive index: Upper pole: 0.79, midpole 0.84 and lower pole 0.67 RAR: 2.3 Bilateral renal veins are patent Impression: 1. Renal artery findings showed normal peak systolic velocities. 2. Renal parenchymal findings: Bilateral kidneys demonstrated RI value of greater than 0.8. This document has been electronically signed by: Enoc Denny MD on 05/16/2025 16:01:02
== END 2025-05-16 08:15 | disposition home or self-care (01) ==
LOC: HO.HMGCX 08:14
PROVIDERS: PCP Radiology Diagnostic Radiology; Visit Provider Internal Medicine Nephrology
DX: I12.9 Hypertensive chronic kidney disease with stage 1 through stage 4 chronic kidney disease, or unspecified chronic kidney disease (principal); N18.9 Chronic kidney disease, unspecified; I25.10 Atherosclerotic heart disease of native coronary artery without angina pectoris; R80.9 Proteinuria, unspecified
CPT/HCPCS: 76775; 93975

== ENCOUNTER 2025-07-01 07:56 | Outpatient (REF) | payer MEDICARE, SELFPAY ==
[2025-07-01 10:46] LABS: Protein/Creatinine Ratio, Ur 0.62 (<0.2); Total Protein Urine Random 25 mg/dL (<12)
[2025-07-01 10:56] LABS: Anion Gap 14 (12-20); Blood Urea Nitrogen 16 mg/dL (9-16); Calcium 9.2 mg/dL (8.4-10.2); Carbon Dioxide 24 mmol/L (22-29); Chloride 104 mmol/L (96-108); Estimated Glomerular Filt Rate > 60; Potassium 4.4 mmol/L (3.3-5.1); Sodium 138 mmol/L (135-145)
== END 2025-07-01 07:57 | disposition home or self-care (01) ==
LOC: HO.HMGCLDS 07:56
PROVIDERS: PCP Internal Medicine; Visit Provider Internal Medicine Nephrology
DX: Z13.1 Encounter for screening for diabetes mellitus (principal); I10 Essential (primary) hypertension; R80.8 Other proteinuria; R80.9 Proteinuria, unspecified
CPT/HCPCS: 80051; 82310; 82565; 82570; 82784; 83036; 84156; 84520; 86334; 86335

== ENCOUNTER 2025-07-02 13:02 | Outpatient (AMB) | payer MEDICARE, SELFPAY ==
[2025-07-02 13:07] VITALS: BP 132/67; PULSE 69; O2SAT 97; BMI 20.8
--- NOTE | 2025-07-02 13:07 | MHC.OFFVIS ---
Vital Signs 07/02/25 13:07 Height 5 ft 10 in Weight 145 lb BMI 20.8 BP 132/67 Blood Pressure Location Rt brachial Position Sitting Pulse 69 Pulse Source Pulse Oximeter Pulse Oximetry (%) 97 Oxygen Delivery Method Room Air Intake Visit Reasons: COPD Allergies No Known Allergies Allergy (Verified 07/02/25 13:13) HPI HPI COPD: Details: 84-year-old gentleman, active 50+ pack-year smoker, followed for moderate COPD and pulmonary nodules.? He continues on Breztri and rarely requires to use his albuterol MDI. His symptoms are well controlled. He denies any recent exacerbations. He has aged out of lung cancer screening program. No significant changes since prior visit. [facility] Medical History (Updated 03/15/25 @ 14:35 by Jerome Ayala MD) Diabetes mellitus with diabetic microalbuminuria, without long-term current use of insulin Tubular adenoma of colon (~2011) CAD (coronary artery disease) Hx of myocardial infarction (~1991) Hypertension Hyperlipidemia Diabetes Moderate COPD (chronic obstructive pulmonary disease) Smoker History of bladder cancer (~1996) Surgical History History of heart artery stent History of cystoscopy History of colonoscopy History of cholecystectomy History of left ankle joint replacement History of nasal surgery Social History Are you a primary rehab care assistant to a significant other at home: No Do you presently have visiting nurse or other home services: No Alcohol intake: never Patient Tobacco Use Status: Current everyday Tobacco user (3 cigarettes a day ) Tobacco use type: Cigarette Cigarettes Per Day: 4 Years Smoked: 40 Review of Systems Const Denies daytime sleepiness, Denies excessive sweating, Denies fatigue, Denies fever(s), Denies lethargy, Denies malaise, Denies night sweats, Denies snoring and Denies weight loss Eyes Denies blurry vision and Denies itchy eyes ENT Denies nasal congestion, Denies post nasal drip, Denies sinus pain, Denies sinus pressure and Denies other ( Thrush) Card Denies chest pain, Denies pedal edema, Denies dyspnea, Denies orthopnea and Denies paroxysmal nocturnal dyspnea Resp Denies cough, Denies hemoptysis, Denies excessive phlegm production, Denies dyspnea, Denies snoring and Denies wheezing GI Denies abdominal pain and Denies heartburn Musc Denies myalgias, Denies arthralgias and Denies joint swelling Skin/Breast Denies rash Neuro Denies memory loss and Denies seizure-like activity Psych Denies abnormal sleep pattern, Denies anxiety and Denies memory loss Endo Denies excessive sweating, Denies fatigue and Denies heat intolerance Jerry/Lymph Denies easy bruising Aller/Immun Denies itchy eyes, Denies seasonal rhinorrhea and Denies wheezing Physical Exam Vital Signs: Last Vital Signs Pulse 69 07/02/25 13:07 BP 132/67 07/02/25 13:07 Pulse Ox 97 07/02/25 13:07 Oxygen Delivery Method Room Air 07/02/25 13:07 BMI result Body Mass Index 20.8 Const General: no acute distress and alert Nutritional Appearance: not obese Orientation/consciousness: Other orientation findings ( oriented) HEENT Head: Yes atraumatic Eyes General: appearance normal, both eyes and all related structures Sclerae: sclerae normal EOM: EOMs intact bilaterally Neck Neck: Yes supple Lymphatic: no lymphadenopathy noted Resp Effort & Inspection: normal respiratory effort and no use of accessory muscles Auscultation: clear to auscultation bilaterally Cardio Rate: regular rate Rhythm: regular rhythm Heart sounds: no gallops, Murmur heart sound present (3/6 systolic) and no rubs Skin General skin exam: other ( warm) Extrem General: No clubbing, No cyanosis and No edema Assessment & Plan Assessment & Plan (1) Moderate COPD (chronic obstructive pulmonary disease): Code(s): J44.9 - Chronic obstructive pulmonary disease, unspecified Category: Medical Plan: Well controlled on current regimen of Breztri and albuterol MDI. Continue current regimen. Coding Level of Care Code Est Pt Level 3 (51526) Diagnoses Moderate COPD (chronic obstructive pulmonary disease) J44.9
--- OUTSIDE RECORDS SUMMARY | 2025-07-03 04:36 | XMS_ITS | Clinical Summary ---
Author Organization [address] [facility] Address [address] [place] [address] Phone Care Team Providers Care Business Taxes Specialist Name Role Phone Physician, Pcp Unknown Primary [...] Diabetes: Blood Sugar Control Test (HGBA1C) 01/21/2025 COVID-19 Vaccine ( season) 2025 11/06/2024, 05/04/2024, 05/16/2023, Additional history exists Influenza Vaccine (#1) 2025 , 04/27/2023, 05/06/2022, [...] exists RSV Immunization Adult Patients Completed 04/23/2024 HIB Vaccines Aged Out No longer eligi [...] age to complete this topic Insurance MEDICARE [facility] Care Teams Business Taxes Specialist Relationship Specialty Start Date End Date Physician, Pcp Unknown PCP - General 12/28/24
--- OUTSIDE RECORDS SUMMARY | 2025-07-03 04:37 | XMS_ITS | Encounter Summary ---
Author Organization [facility] Address [address] [place] [address] Care Team Providers Care Green Jobs Trainer Name Role Phone Physician, Pcp Unknown Primary Care Provider Nicolette vailable Encounter Details Date Type Department Care Team (Late st Contact Info) Description 12/28/2024 Lab Requisition [facility] - Main Lab [address] [facility] [address] [place] [address] Kev Mir MD [address] [facility] [address] [place] [address] Personal history of malignant neoplasm [...] AM EDT) Final Diagnosis A. Urine, Voided, ([id number]): Negative for high grade urothelial carcinoma. Degenerated [...] and pathological findings. 01/11/2025 11:20 AM EDT [facility] Clinical Information History of bladder neoplasm (malignant) Z85.51 Malignant neoplasm of trigone of bladder C67.0 Urine Cytology/FISH (now) 01/11/2025 11:20 AM EDT [facility] Gross Description A. Urine, Voided, ([id number]): Received one ThinPrep slide for cytology and one ThinPrep slide for UroVysion FISH 01/11/2025 11:20 AM EDT [facility] Disclaimer Unless otherwise specified, all tissue is 10% NB formalin fixed and paraffin embedded. Technical pathology services provided by [facility] at [address] [place] [address] (CLIA #[id number]/Mary Singh MD, Sales Mgr) 01/11/2025 11:20 AM EDT [facility] Tissue Urine specimen from urethra / Unknown 12/25/2024 12/28/2024 2:22 PM EDT us Kev Mir MD LAB PATHOLOGY ORDERABLES Final Result [facility] [address] [place] [address], documented in this encounter Visit Diagnoses Diagnosis Personal history of malignant neoplasm of bladder Malignant neoplasm of trigone of bladder (CMS/HCC V24, CMS/HCC V28) Malignant neoplasm of trigone of urinary bladder documented in this encounter Care Teams Green Jobs Trainer Relationship Specialty Start Date End Date Physician, Pcp Unknown PCP - General 12/28/24 documented as of this encounter
--- OUTSIDE RECORDS SUMMARY | 2025-07-03 04:37 | XMS_ITS | Encounter Summary ---
Author Organization [facility] Address [address] [place] [address] Care Team Providers Care Business Development Executive Name Role Phone Physician, Pcp Unknown Primary Care Provider Nicolette vailable Encounter Details Date Type Department Care Team (Late st Contact Info) Description 07/04/2024 Lab Requisition [facility] - Main Lab [address] [address] [place] [address] Kev Mir MD [address] [facility] [address] [place] [address] Malignant neoplasm of posterior wall [...] clinical and pathological findings. 07/13/2024 8:53 AM [facility] Clinical Information [id number] Cytology/FISH 07/13/2024 8:53 AM [facility] Gross Description A. Urine, Voided, : [id number] Received 1 TP (CYTO) 1 TP (FISH) 07/13/2024 8:53 AM [facility] Disclaimer Unless otherwise specified, all tissue is 10% NB formalin fixed and paraffin embedded. 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
== END 2025-07-02 13:47 | disposition home or self-care (01) ==
LOC: HO.HPS 13:03
PROVIDERS: PCP Internal Medicine; Visit Provider Internal Medicine Pulmonary Disease
DX: J44.9 Chronic obstructive pulmonary disease, unspecified (principal)
CPT/HCPCS: 99213

== ENCOUNTER → 2025-07-02 13:02 | Outpatient (BNVA) | payer MEDICARE, SELFPAY | PROVIDERS: PCP Internal Medicine; Visit Provider Internal Medicine Pulmonary Disease | DX: J44.9 Chronic obstructive pulmonary disease, unspecified (principal); R91.8 Other nonspecific abnormal finding of lung field; F17.210 Nicotine dependence, cigarettes, uncomplicated | CPT/HCPCS: 99212 ==

== ENCOUNTER → 2025-07-24 07:48 | Outpatient (REF) | payer MEDICARE, SELFPAY ==
--- NOTE | 2025-07-24 07:52 | CA_ITS ---
Transthoracic Echocardiogram Patient (Last, First, Middle): Blue Bueno, Gender: Male Date of : 1940 Age: 84 Procedure Date: 07/24/2025 Procedure Type: Transthoracic Echocardiogram Location: OP Height: 175.26 cm Weight: 68.49 kg BSA: 1.83 m2 Heart Rate: 66 bpm BP: 122 / 68 mmHg Warehouse Shipping Clerk: SANTHOSH Referring MD: Shilo Garcia MD Hat Ironer: Miles Hopkins MD Symptoms: R94.31 ABN.EKG and R01.1 Murmur Study Quality: Adequate ECG Rhythm: Sinus Conclusions: - 1. Moderately dilated left ventricle with mildly reduced LV ejection fraction of 45-50% with regional wall motion abnormality consistent with underlying coronary artery disease with impaired relaxation filling pattern 2. Moderate aortic stenosis with mean gradient of 23 mm Hg 3. Normal RV systolic pressure 4. No gross pericardial effusion Findings Left Ventricle Moderately increased left ventricular cavity size. There is normal left ventricular wall thickness. The left ventricular systolic function is mildly decreased. There is evidence of regional wall motion abnormalities. Spectral Doppler is indicative of an impaired relaxation filling pattern. E/E prime ratio is between 8 and 15 consistent with indeterminate filling pressures. Wall Motion Rest Echo Findings The inferoseptal wall, inferolateral wall, and mid inferior segment are hypokinetic. The basal inferior segment is akinetic. All other scored wall segments showed normal motion. Right Ventricle Normal right ventricular cavity size and systolic function. Atria The left atrium is likely dilated. There is lipomatous hypertrophy of the interatrial septum. There is no evidence of interatrial shunt. The right atrium is normal in size. Aortic Valve The aortic valve was not well visualized. There is moderate calcification of the aortic valve. There is moderate aortic valve stenosis. The peak aortic gradient is 40 mmHg.The mean gradient is 23 mmHg. The aortic valve area is 1.07 cm2. There is mild to moderate aortic valve regurgitation. Mitral Valve There is moderate anterior and posterior mitral leaflet thickening. There is mild mitral annular calcification. There is trace mitral valve regurgitation. There is no mitral valve stenosis. Pulmonic Valve The pulmonic valve is likely normal. Tricuspid Valve Likely normal tricuspid valve structure and function. There is trace tricuspid valve regurgitation. The right ventricular systolic pressure is normal. The right ventricular systolic pressure is 31 mmHg. Normal right atrial pressure. There is no evidence of pulmonary hypertension. Great Vessels All visible segments of the aorta are normal in size. The pulmonary artery was not well visualized. There is no dilatation of the ascending aorta measuring 2.70 cm. Venous The inferior vena cava is normal in size and collapses greater than 50% with inspiration. Pericardium/Pleural There is no evidence of pericardial effusion. Prior Study Comparison No prior study available for comparison. Measurements 2D Linear Measurements IVSd: 0.81 0.6-0.9/0.6-1.0 cm LVIDd: 6.33 3.9-5.3/4.2-5.9 cm LVIDd Index: 3.46 2.4-3.2/2.2-3.1 cm/m2 LVIDs: 5.26 2.0-3.6 cm LVPWd: 0.74 0.7-1.1 cm LA Diam: 4.20 2.7-3.8/3.0-4.0 cm LAIDs Index: 2.30 1.5-2.3 cm/m2 LV Mass: 244.51 67-162/88-224 g LV Mass Index: 133.61 43-95/49-115 g/m2 LVOT Diam: 2.10 3.0+(-)1.3 cm 2D Systolic Function EF 4C: 47.00 >55% EF 2C: 53.20 >55% EF BiP: 48.40 >55% Mitral Valve MV Pk E: 0.68 MV PK A: 0.97 MV Decel Time: 182.00 E/A: 0.70 E'Lateral: 6.31 E'Medial: 4.46 E/E' Med: 15.30 E/E' Lat: 10.80 PHT: 53.00 MVA PHT: 4.15 Decel Cecil: 3.75 Aortic Valve AoV Pk José Miguel: 3.16 AoV Mn José Miguel: 2.26 AoV VTI: 0.71 AoV Pk Grad: 40.00 Aov Mn Grad: 23.00 HENRY Cont.VTI: 1.07 AI Pk José Miguel: 3.31 AI Cecil: 1.96 LVOT LVOT Pk José Miguel: 1.03 LVOT Mn José Miguel: 0.73 LVOT VTI: 0.23 LVOT Pk Grad: 4.00 LVOT Mn Grad: 3.00 LVOT Diam: 2.10 LVOT Area: 3.46 Diastolic Function MV Pk E: 0.68 MV Pk A: 0.97 E/A: 0.70 E'Medial: 4.46 E/E' Med: 15.30 E' Laterial: 6.31 E/E' Lat: 10.80 Tricuspid Valve TR Pk José Miguel: 2.63 TR Pk Grad: 28.00 RA Press: 3.00 RVSP: 31.00 Great Vessels Aorta Sinus of Valsalva: 2.80 2.0-3.5 cm Ao Asc: 2.70 2.1-3.4 cm Updated in Other Vendor System with Status of Final Miles Hopkins MD electronically signed on 07/24/2025 4:31:51 PM with status of Final
== END ==
LOC: HO.CARD 07:48
PROVIDERS: PCP Internal Medicine; Visit Provider Internal Medicine
DX: R01.1 Cardiac murmur, unspecified (principal)
CPT/HCPCS: 93306; 99212

== ENCOUNTER → 2025-07-24 07:52 | Outpatient (BNV) | payer MEDICARE, SELFPAY | PROVIDERS: PCP Internal Medicine; Visit Provider Internal Medicine Cardiovascular Disease | DX: I35.0 Nonrheumatic aortic (valve) stenosis (principal); I51.89 Other ill-defined heart diseases | CPT/HCPCS: 93306 ==

== ENCOUNTER 2025-07-24 09:32 | Outpatient (AMB) | payer MEDICARE, SELFPAY ==
--- NOTE | 2025-07-24 09:40 | HO.NEPHOV_ITS ---
Vital Signs 07/24/25 09:41 Height 5 ft 10 in Weight 145 lb 2 oz BMI 20.8 BP 120/50 L Blood Pressure Location Rt brachial Position Sitting Pulse 69 Pulse Source Pulse Oximeter Pulse Oximetry (%) 98 Oxygen Delivery Method Room Air Intake Visit Reasons: 2mon f/u w/labs-LVM Splicer Operator Required: No Accompanied by: Self / Same As Patient Allergies No Known Allergies Allergy (Verified 07/24/25 09:41) HPI Comments Details: Blue was seen in follow up for proteinuria. He is 84 years of age with H/O long standing hypertension and DM . He is on ACEI as well as SGLT2 i . His last A1c was 8.5. He denies nausea, vomiting, diarrhea, shortness of breath, PND, orthopnea, dizziness, epistaxis, photosensitivity, new skin rashes, new bone or back pain, excess NSAID intake, H/O malignancies, carotid stenosis, CVA, CHF or PAD. He had CAD and PCI. He has no urinary symptoms, sinusitis, epistaxis, edema, M/S hematuria or hearing impairment. His serum creatinine is normal but has been having proteinuria. [facility] Medical History (Updated 03/15/25 @ 14:35 by Jreome Ayala MD) Diabetes mellitus with diabetic microalbuminuria, without long-term current use of insulin Tubular adenoma of colon (~2011) CAD (coronary artery disease) Hx of myocardial infarction (~1991) Hypertension Hyperlipidemia Diabetes Moderate COPD (chronic obstructive pulmonary disease) Smoker History of bladder cancer (~1996) Surgical History History of heart artery stent History of cystoscopy History of colonoscopy History of cholecystectomy History of left ankle joint replacement History of nasal surgery Social History Are you a primary director of managed care to a significant other at home: No Do you presently have visiting nurse or other home services: No Alcohol intake: never Patient Tobacco Use Status: Current everyday Tobacco user (3 cigarettes a day ) Tobacco use type: Cigarette Cigarettes Per Day: 4 Years Smoked: 40 Review of Systems Const All systems reviewed & are unremarkable except as noted in HPI and below Physical Exam Vital Signs: Last Vital Signs Pulse 69 07/24/25 09:41 BP 120/50 L 07/24/25 09:41 Pulse Ox 98 07/24/25 09:41 Oxygen Delivery Method Room Air 07/24/25 09:41 BMI result Body Mass Index 20.8 Const General: comfortable and no acute distress Orientation/consciousness: patient oriented x3 HEENT Head: Yes normocephalic Mouth: Normal oral and palatal mucosa present Eyes EOM: EOMs intact bilaterally Neck Neck: Yes supple Resp Auscultation: clear to auscultation bilaterally Cardio Jugular venous distension: no JVD Rate: regular rate GI Palpation (GI): Soft to palpation Auscultation: normal bowel sounds General: Yes no CVA tenderness Back/Spine/Pelvis Back: no CVA tenderness Skin General skin exam: no rashes or lesions noted Neuro General: patient oriented x3 and moves all extremities Extrem General: Yes no pedal edema Results Reviewed Nephrology Results: Sodium, (135-145) 138 mmol/L 07/01/25 Potassium, (3.3-5.1) 4.4 mmol/L 07/01/25 Chloride, (96-108) 104 mmol/L 07/01/25 Carbon Dioxide, (22-29) 24 mmol/L 07/01/25 BUN, (9-16) 16 mg/dL 07/01/25 Creatinine, (0.5-1.4) 0.81 mg/dL 07/01/25 Calcium, (8.4-10.2) 9.2 mg/dL 07/01/25 Urine Creatinine 40.56 mg/dL 07/01/25 Protein/Creatinin Ratio, (<0.2) 0.62 H 07/01/25 Renal US 05/16/25 Assessment & Plan Assessment & Plan (1) Hypertension: Code(s): I10 - Essential (primary) hypertension Category: Medical Qualifiers: Hypertension type: primary hypertension Qualified Code(s): I10 - Essential (primary) hypertension (2) Proteinuria: Code(s): R80.9 - Proteinuria, unspecified Category: Medical Qualifiers: Proteinuria type: other Qualified Code(s): R80.8 - Other proteinuria Plan 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 He is on ACEI & SGLT2 i. I increased his Jardiance to 25 mg daily. I shall increase his ACEI at next visit. His renal imaging studies are pending. I shall consider increase his ACEI if his serum creatinine tolerates it. He should maintain good hydration and avoid NSAID's. Answered all questions and F/U was given Orders: Orders Creatinine 6 Months I10 - Essential (primary) hypertension, R80.8 - Other proteinuria Protein Creatinine Ratio, Ur 6 Months I10 - Essential (primary) hypertension, R80.8 - Other proteinuria Electrolytes 6 Months I10 - Essential (primary) hypertension, R80.8 - Other proteinuria Blood Urea Nitrogen 6 Months I10 - Essential (primary) hypertension, R80.8 - Other proteinuria Coding Level of Care Code Est Pt Level 4 (70901) Diagnoses Primary hypertension I10 Hypertension type: primary hypertension Other proteinuria R80.8 Proteinuria type: other
[2025-07-24 09:41] VITALS: BP 120/50; PULSE 69; O2SAT 98; BMI 20.8
== END 2025-07-24 09:58 | disposition home or self-care (01) ==
LOC: HO.HKA 09:33
PROVIDERS: PCP Internal Medicine; Visit Provider Internal Medicine Nephrology
DX: I10 Essential (primary) hypertension (principal); R80.8 Other proteinuria
CPT/HCPCS: 99214